=== PATIENT | female | born 1935 | race Caucasian/White ===

== ENCOUNTER → 2016-06-08 | Outpatient (CLI) | payer BC ==
[~2016-06-08] MED LIST: ALPR-411 PO; AMLO10TA4 PO; AMX500 PO; ASPI81TA28 PO; ATOR-26 PO; CHOL100010 PO; CMD2 PO; DOXY50CA26 PO; HYDR25CA PO; HYDR25TA4 PO; IBUP-1050 PO; LEVE750T PO; LISI-461 PO; LPR25 PO; LPT/40 PO; LSN20 PO; METO25TA3 PO; XNX25 PO
== END | disposition home or self-care (01) ==
LOC: C.RDSM 13:59
PROVIDERS: ATTEND Physical Medicine & Rehabilitation Sports Medicine
DX: M17.0 Bilateral primary osteoarthritis of knee (principal)

== ENCOUNTER → 2016-06-18 | Outpatient (CLI) | payer BC | END | disposition home or self-care (01) | LOC: C.LAB1850 16:31 | PROVIDERS: ATTEND Psychiatry & Neurology Neurology | DX: G40.909 Epilepsy, unspecified, not intractable, without status epilepticus (principal) ==

== ENCOUNTER → 2016-11-07 | Outpatient (CLI) | payer BC ==
[2016-11-07 12:45] LABS: CHOLESTEROL/HDL RATIO 2.7
== END | disposition home or self-care (01) ==
LOC: C.LAB 11:28
PROVIDERS: ATTEND Family Medicine
DX: E78.5 Hyperlipidemia, unspecified (principal)

== ENCOUNTER 2016-12-03 10:21 | Day surgery (SDC) | payer BC ==
[~2016-12-03] VITALS: Ht 162.6 cm; Wt 75.0 kg
[~2016-12-03 10:21] MED LIST changes: -ALPR-411 PO; -ASPI81TA28 PO; -ATOR-26 PO; -CHOL100010 PO; -DOXY50CA26 PO; -HYDR25CA PO; -HYDR25TA4 PO; -IBUP-1050 PO; -LEVE750T PO; -LSN20 PO; -METO25TA3 PO
[2016-12-03 10:58] VITALS: BP 159/72; PULSE 66; TEMP 36.6; O2SAT 97; Ht 162.6 cm; Wt 75.0 kg
--- NOTE | 2016-12-03 11:19 | History & Physical Bridge Note ---
H&P Re-Evaluation Bridge Note: I have examined the patient, reviewed the History & Physical and in the interval since the performance of the History & Physical I have noted the following changes of clinical significance: No further syncope.
[2016-12-03] MEDS ORDERED: LSN20 PO (11:27)
[2016-12-03] MEDS ORDERED: ASPI81TA28 PO (11:30)
[2016-12-03] MEDS ORDERED: ATOR-26 PO (11:32)
[2016-12-03] MEDS ORDERED: METO25TA3 PO (11:32)
[2016-12-03] MEDS ORDERED: HYDR25TA4 PO (11:35)
[2016-12-03] MEDS ORDERED: LEVE750T PO (11:37)
[2016-12-03] MEDS ORDERED: ALPR-411 PO (11:40)
[2016-12-03] MEDS ORDERED: CHOL100010 PO (11:42)
[2016-12-03] MEDS ORDERED: LIDOCAINE HCL 1% 20 ML VIAL ONE (11:42)
[2016-12-03] MEDS ORDERED: DOXY50CA26 PO (11:44)
[2016-12-03] MEDS ORDERED: HYDR25CA PO (11:45)
[2016-12-03] MEDS ORDERED: IBUP-1050 PO (11:46)
--- NOTE | 2016-12-03 11:54 | Procedure Note ---
Procedure Note Date of Service Dec 03, 2016. Procedure Note Procedure Performed: Implant of patient activated loop recorder Staff baling machine tender: Dom Gupta MD Indication: Patient is an 81-year-old woman with a history of syncope versus seizures. Based on the unknown etiology of her events and the infrequent nature of these episodes she was advised to consider implantation of a loop recorder. Procedure in detail: The patient was informed of the risks benefits and alternatives to the intended procedure. She understood such which proceed. She was taken to the electrophysiology suite where the left upper chest was prepped and draped in the usual sterile fashion. An area left lateral to the sternum in the 4th intercostal space was subsequently anesthetized using subcutaneous administration of lidocaine solution. A small incision was made at this site and the loop recorder was implanted using a proprietary implantation kit. The resultant small incision was subsequent closed with a single 4 0 Vicryl suture followed by Steri-Strips and a sterile dressing. The device was tested noninvasively prior conclusion the procedure. The patient tolerated procedure well. There were no immediate complications. Equipment used: Loop recorder: [employer]. Model number [id number]. Serial number [id number] Impression: Successful implantation of patient activated loop recorder
--- NOTE | 2016-12-03 11:58 | Discharge Instructions ---
Discharge Instructions Date of Service Dec 03, 2016. Admission Reason for Admission: Syncope Discharge Discharge Diagnosis / Problem: syncope Discharge Goals Goal(s): Diagnostic testing Activity Recommendations Activity Limitations: as noted below Lifting Limitations: none Exercise/Sports Limitations: none May Resume Sexual Activity: when tolerated Shower/Bathe: keep incision dry Driving or Machine Use: no limitations Keep wound dry and steri-strip intact until f/u for wound check . Current Hospital Diet Patient's current hospital diet: Diabetes Type 2 Diet Discharge Diet Recommended Diet: Regular Diet Procedures Procedures Performed: Placement of loop recorder Pending Studies Studies pending at discharge: no Laboratory Results Lipid Panel Test 11/07/16 11:46 Range/Units Triglycerides Level 106 0-150 mg/dl Cholesterol Level 166 0-200 mg/dl HDL Cholesterol 61 mg/dl Cholesterol/HDL Ratio 2.7 LDL Cholesterol, Calculated 84 mg/dl Medical Emergencies . Who to Call and When: Medical Emergencies: If at any time you feel your situation is an emergency, please call 911 immediately. . Non-Emergent Contact Non-Emergency issues call your: Information Security Risk Analyst Call Non-Emergent contact if: you have a fever, your pain is not controlled, your pain is worsening, wound has increased drainage, wound has increased redness, wound has increased pain . . "Provider Documentation" section prepared by Manny Gupta. . VTE Core Measure Inpt VTE Proph given/why not?: Treatment not indicated
[2016-12-03] MEDS ORDERED: ACETAMINOPHEN 325 MG TAB PO PRN (12:00)
[2016-12-03] MEDS ORDERED: OXYCODONE/ACETAMINOPHEN 5-325 TAB PO PRN (12:00)
[2016-12-03 12:05] VITALS: BP 143/71; PULSE 64; TEMP 36.6; O2SAT 98
[2016-12-03 12:30] VITALS: BP 148/85; PULSE 70; TEMP 36.6; O2SAT 98
== END 2016-12-03 12:36 | disposition home or self-care (01) ==
LOC: C.ACU 10:21
PROVIDERS: ATTEND Internal Medicine Clinical Cardiac Electrophysiology
DX: G40.909 Epilepsy, unspecified, not intractable, without status epilepticus (principal); I10 Essential (primary) hypertension; E78.00 Pure hypercholesterolemia, unspecified; E11.9 Type 2 diabetes mellitus without complications; Z86.73 Personal history of transient ischemic attack (TIA), and cerebral infarction without residual deficits

== ENCOUNTER → 2017-01-20 | Outpatient (CLI) | payer BC ==
[~2017-01-20] MED LIST changes: +ALPR-411 PO; -AMLO10TA4 PO; -AMX500 PO; +ASPI81TA28 PO; +ATOR-26 PO; +CHOL100010 PO; -CMD2 PO; +DOXY50CA26 PO; +HYDR25CA PO; +HYDR25TA4 PO; +IBUP-1050 PO; +LEVE750T PO; -LISI-461 PO; -LPR25 PO; -LPT/40 PO; +LSN20 PO; +METO25TA3 PO; -XNX25 PO
== END | disposition home or self-care (01) ==
LOC: C.LAB1850 16:34
PROVIDERS: ATTEND Psychiatry & Neurology Neurology
DX: G40.909 Epilepsy, unspecified, not intractable, without status epilepticus (principal)

== ENCOUNTER → 2017-03-17 | Outpatient (CLI) | payer BC ==
[~2017-03-17] MED LIST changes: +DOXY-258 PO; -DOXY50CA26 PO; +LISI-726 PO; -LSN20 PO
== END | disposition home or self-care (01) ==
LOC: C.LAB1850 15:48
PROVIDERS: ATTEND Psychiatry & Neurology Neurology
DX: G40.909 Epilepsy, unspecified, not intractable, without status epilepticus (principal)

== ENCOUNTER → 2017-04-08 | Outpatient (CLI) | payer BC ==
[~2017-04-08] MED LIST changes: -DOXY-258 PO; +DOXY50CA26 PO; -LISI-726 PO; +LSN20 PO
[2017-04-08 17:02] LABS: BLOOD UREA NITROGEN 27 mg/dl (7-18); CREATININE 1.14 mg/dl (0.60-1.20)
== END | disposition home or self-care (01) ==
LOC: C.LAB1850 15:15
PROVIDERS: ATTEND Physician Assistant
DX: E11.9 Type 2 diabetes mellitus without complications (principal)

== ENCOUNTER → 2017-04-28 | Outpatient (CLI) | payer BC ==
--- NOTE | 2017-04-28 11:51 | EEG Procedure Note ---
EEG Procedure Note Date of Service Apr 28, 2017. Start / End Times Start Time: 8:00am End Time: 8:21am Referring Physician STEFAN Hassan History This is a 81-year-old female with a reported history of epilepsy and seizures. EEG for further evaluation of seizure etiology. Home Medication List Scheduled Alprazolam (Xanax), 0.25 MG PO TID Aspirin (Aspirin Ec), 81 MG PO DAILY Atorvastatin (Lipitor), 1 TAB PO DAILY Cholecalciferol (Vitamin D), 2 TAB PO DAILY Doxycycline (Monohydrate) (Doxycycline), 1 TAB PO BID Hydrochlorothiazide (Hctz), 1 TAB PO DAILY Levetiracetam (Keppra), 2 TABS PO BID Lisinopril (Lisinopril), 1 TAB PO QAM Metoprolol Succ (Toprol Xl) (Toprol-Xl), 25 MG PO DAILY Scheduled PRN Hydroxyzine Pamoate (Vistaril), 1 CAP PO DAILY PRN for Itching Miscellaneous Medications Ibuprofen (Advil), 200 MG PO Description This is a 21 electrode EEG with a single channel dedicated to limited EKG. The electrodes were placed in accordance with the International 10-20 system. At the start of the recording the patient was in an awake state. Background was well organized and composed of symmetric mixed alpha and beta frequencies. There was a symmetric well-formed moderate amplitude 9-10 Hz posterior dominant rhythm that was reactive to eye opening and closure. Hyperventilation was not done. Intermittent photic stimulation at various frequencies produced no abnormalities. Sleep was indicated by symmetric sleep spindles. Interpretation This is a normal awake and asleep routine EEG. There was no electrographic seizures or epileptiform discharges. Clinical Correlation A normal EEG does not rule out epilepsy if there is a strong clinical suspicion.
== END | disposition home or self-care (01) ==
LOC: C.NEUR 07:55
PROVIDERS: ATTEND Physician Assistant
DX: G40.909 Epilepsy, unspecified, not intractable, without status epilepticus (principal)

== ENCOUNTER → 2017-04-28 | Outpatient (CLI) | payer BC ==
[~2017-04-28] MED LIST changes: +GADAVIST IV PRN
--- NOTE | 2017-04-28 10:28 | DIAGNOSTIC IMAGING REPORT ---
Brain MRI WITH AND WITHOUT CONTRAST HISTORY: SEIZURE DISORDER TECHNIQUE: Multiplanar multisequence MRI of the brain was performed both before and after the intravenous administration of contrast. COMPARISON STUDY: Brain MRI 04/23/2014. FINDINGS: There is no hematoma, midline shift, or acute infarct. The paranasal sinuses are clear. The mastoid air cells are clear. The ventricles and sulci demonstrate mild age-related involutional changes. Scattered foci of T2 hyperintensity seen within the periventricular and subcortical white matter are nonspecific but suggestive of mild to moderate microvascular ischemic changes. The major vascular flow voids at the skull base are well-maintained. Stable 9 mm extra-axial enhancing lesion within the left high convexity. This likely represents a meningioma. 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 IMPRESSION: 1. No significant change compared to the prior study. No acute intracranial abnormality. 2. Stable presumed microvascular ischemic changes. 3. Stable 9 mm enhancing extra-axial nodule within the left high convexity. This likely represents a meningioma. Electronically signed by: Sarabjit Duque M.D. 04/28/2017 10:27 AM Dictated Date/Time: 04/28/2017 10:19 AM
== END | disposition home or self-care (01) ==
LOC: C.MRIBC 08:42
PROVIDERS: ATTEND Physician Assistant
DX: G40.909 Epilepsy, unspecified, not intractable, without status epilepticus (principal); R22.0 Localized swelling, mass and lump, head

== ENCOUNTER → 2017-05-20 | Outpatient (CLI) | payer BC ==
[~2017-05-20] MED LIST changes: -GADAVIST IV PRN
== END | disposition home or self-care (01) ==
LOC: C.LAB1850 16:30
PROVIDERS: ATTEND Psychiatry & Neurology Neurology
DX: G40.909 Epilepsy, unspecified, not intractable, without status epilepticus (principal)

== ENCOUNTER → 2017-06-07 | Outpatient (CLI) | payer BC | END | disposition home or self-care (01) | LOC: C.RDSM 07:50 | PROVIDERS: ATTEND Physical Medicine & Rehabilitation Sports Medicine | DX: M25.561 Pain in right knee (principal); M25.562 Pain in left knee ==

== ENCOUNTER 2023-07-28 14:08 | Inpatient (IN) ==
--- NOTE | 2023-07-28 14:20 | Emergency Department Note ---
Impression & Plan Syncope, Acute hyponatremia, HTN (hypertension), Stroke ED Provider Note NAME: SALONI SORTO AGE: 88 SEX: F : 1935 ARRIVES VIA: Ambulance INFORMANT: Patient ED PROVIDER(S): Stu Gilbert DO CHIEF COMPLAINT: syncope HPI: Patient is an 88-year-old female who presents to the ER for a history of hyperlipidemia, hypertension and seizure disorder for 2 episodes of where she passed out. There was no seizure activity. Patient was not witnessed on the first event. It was witnessed on the second as there was a nurse present. Denies any headache or change in vision. No chest pain or shortness of breath. No nausea, vomiting, or diarrhea. No dysuria, urgency, or frequency. No other exacerbating or remitting factors. ADDITIONAL HISTORY OBTAINED: Per HPI Chronic Medical/Social Conditions Affecting Care: Per HPI PAST MEDICAL HISTORY:See Below PAST SURGICAL HISTORY:See Below FAMILY HISTORY:See Below SOCIAL HISTORY:See Below HOME MEDICATIONS:See Below ALLERGIES:See Below VITALS:See Below PHYSICAL EXAMINATION: GENERAL: Sitting up in bed, alert, well appearing, well nourished, no distress, non-toxic EYE EXAM: normal conjunctiva. PERRL and EOM's grossly intact. HEAD: NC/AT OROPHARYNX: no exudate, no erythema, buccal mucosa, and tongue normal and mucous membranes are moist. small abrasion mid upper lip NECK: supple, no nuchal rigidity, no adenopathy, non-tender LUNGS: Clear to auscultation. Normal chest wall mechanics HEART: no murmurs, S1 normal and S2 normal ABDOMEN: abdomen soft, non-tender, normo-active bowel sounds, no masses, no rebound or guarding. BACK: Back is symmetrical on inspection and there is no deformity, no midline tenderness, no CVA tenderness. SKIN: no rashes and no bruising UPPER EXTREMITIES: upper extremities are grossly normal. LOWER EXTREMITIES: No pitting edema. NEURO EXAM: Normal sensorium, cranial nerves II-XII grossly intact, normal speech, no gross weakness of arms, no gross weakness of legs. MEDICAL DECISION MAKING: Patient is an 88-year-old female who presents ER for 2 syncopal episodes. She is found to be significant hypertensive with systolics in the 220s. IV was established blood work was obtained. Labs show no significant leukocytosis or anemia. BMP with mild hyponatremia 134. LFTs bilirubin was unremarkable. Lipase was normal. Troponin was negative. Patient was completely neurologically intact. She was given IV hydralazine for systolics in the 220s and then trended down to 180s. CT suggested a subacute infarct. With a drop in blood pressure to 180 elected to not treat any further and discussed with the hospitalist for further evaluation management treatment. Consults/Care Managements Discussions: Per MDM Triage Nursing notes reviewed. Limited review of prior medical records performed Vital Signs: reviewed and remarkable for no significant abnormalities Differential diagnosis: Differential diagnosis includes etiologies such as vasovagal event, infection, hypoglycemia, electrolyte abnormalities, cardiac sources, intracerebral event, toxicologic, neurologic, as well as others were entertained. ER treatment provided: See below Diagnostics interpreted by me include EKG and cardiac monitoring as listed below: -Cardiac Monitoring: An order was placed for continuous cardiac monitoring. The monitor shows a rate of 80 with sinus rhythm. -ECG: Sinus rhythm rate 65 Normal axis No PVCs QTc 405 -Laboratory studies:Interpreted by me as stated above in MDM and shown below. Imaging studies: Xrays: As interpreted by me: Portable AP upright 1 view chest shows no focal infiltrate CTs show: CT of the head shows a subacute infarct Procedures:none Critical Care: None Past Med/Surg History Problem List (Updated 07/28/23 @ 18:46 by Stu Gilbert DO) Stroke (Acute) HTN (hypertension) (Acute) Acute hyponatremia (Acute) Syncope (Acute) Right knee pain Syncope Poor short term memory Blurry vision, left eye Chronic kidney disease, stage 3a Insomnia Chronic renal insufficiency (Chronic) Hyperlipidemia (Chronic) Meningioma (Acute) Generalized anxiety disorder (Acute) Dyslipidemia (Acute) Hypertension (Chronic) Seizure disorder (Acute) Syncope and collapse (Acute) Essential tremor (Acute) Type 2 diabetes mellitus (Chronic) Medical History Chronic renal insufficiency Weight disorder Ventricular premature beats Transient cerebral ischemia Syncope Seborrheic dermatitis of scalp Sacral insufficiency fracture Rosacea Right facial numbness Right arm numbness Osteoporosis Nummular eczema Mental confusion IFG (impaired fasting glucose) Lichen simplex chronicus Hx of uterine prolapse Constipation Chronic paronychia of toe Borderline osteopenia Borderline diabetes mellitus Arthritis Ankle pain Angioedema Acute lumbar radiculopathy Acquired ptosis of eyelid Anxiety Seizure LAST--06/2017 PER PT SHE "JUST PASSES OUT FOR A MINUTE OR TWO" Hypertension Hyperlipidemia Surgical History History of bladder surgery CYSTOCELE REPAIR History of bilateral tubal ligation History of ankle surgery RIGHT ANKLE FX REPAIR--PINS AND RODS IN PLACE History of total left knee replacement (TKR) H/O abdominal hysterectomy History of colonoscopy History of tooth extraction WISDOM TEETH History of tonsillectomy and adenoidectomy H/O bilateral cataract extraction Status post placement of implantable loop recorder Family History Family/Other Colorectal cancer Father COPD (chronic obstructive pulmonary disease) Emphysema, unspecified Mother Hypertension Syncope Sister Cardiovascular disease Social History Smoking Status: Never smoker Second Hand Exposure: No; Do You Dip or Chew Tobacco: No; Hx Alcohol Use: No Hx Substance Use: No Preferred Language: Congolese Communication Ability: Effective Bar Catcher Required: No Beliefs That Will Affect Care: Mandaeism Mandaeism Beliefs: GNOSTICISM AND CONGREGATIONAL Current Living Situation: Spouse Feels Safe at Home: Yes Assistive Devices: Denture - Upper and Glasses Allergies Allergies Allergy/AdvReac Type Severity Reaction Status Date / Time alendronate sodium Allergy Severe tongue Verified 07/28/23 16:49 swelling lisinopril Allergy Unknown Verified 07/28/23 16:49 Alendrnate Allergy Unknown unknown Uncoded 07/28/23 16:49 Home Meds Home Medications Medication Instructions Recorded Confirmed lancets 33 gauge [facility] 05/27/20 07/28/23 Lancets) terazosin 2 mg capsule 2 mg PO HS 05/27/20 07/28/23 cholecalciferol (vitamin D3) 25 50 mcg PO DAILY 06/11/20 07/28/23 mcg (1,000 unit) capsule blood sugar diagnostic (Celnyx 12/26/20 07/28/23 Verio test strips) potassium chloride 10 mEq 10 meq PO BID 06/03/22 07/28/23 tablet,extended release amoxicillin 500 mg capsule 2,000 mg PO ONCE PRN 1 hr prior to 05/20/23 07/28/23 dental appt carvedilol 6.25 mg tablet 6.25 mg PO BID 05/20/23 07/28/23 escitalopram oxalate 10 mg tablet 5 mg PO DAILY 05/20/23 07/28/23 hydrochlorothiazide 25 mg tablet 25 mg PO DAILY 07/12/23 07/28/23 melatonin 5 mg disintegrating 5 mg PO HS PRN Sleep 07/28/23 07/28/23 tablet Previous Rx's Medication Instructions Recorded atorvastatin 40 mg tablet 40 mg PO DAILY #30 tabs 06/26/21 alprazolam 0.25 mg tablet (Xanax) 0.25 mg PO TID PRN anxiety 90 days 12/11/22 #270 tabs lamotrigine 50 mg tablet,extended 50 mg PO BID #180 tabs 01/07/23 release 24 hr Results & Data (ED) Vital Signs Vital Signs - 24 hr 07/28/23 14:20 07/28/23 14:21 07/28/23 14:21 Temperature 36.8 C Temperature Source Oral Pulse Rate 66 Pulse Rate [Apical] Pulse Rate from SpO2 Sensor Respiratory Rate 14 Blood Pressure 210/94 H Blood Pressure [Left Arm] Blood Pressure Mean 132 Blood Pressure Mean [Left Arm] Pulse Oximetry 98 97 97 Oxygen Delivery Method Room Air Room Air Room Air Sepsis Recent Fever Within 48 Hours No Sepsis New/Unexplained Change in Mental Status N/A Sepsis Action Taken by Nursing No Action Required 07/28/23 14:46 07/28/23 14:52 07/28/23 15:00 Temperature Temperature Source Pulse Rate 69 Pulse Rate [Apical] 70 66 Pulse Rate from SpO2 Sensor 68 Respiratory Rate 19 20 16 Blood Pressure Blood Pressure [Left Arm] 208/106 H 223/89 H Blood Pressure Mean Blood Pressure Mean [Left Arm] 140 133 Pulse Oximetry 95 98 97 Oxygen Delivery Method Room Air Room Air Sepsis Recent Fever Within 48 Hours Sepsis New/Unexplained Change in Mental Status Sepsis Action Taken by Nursing 07/28/23 15:00 07/28/23 15:00 07/28/23 15:04 Temperature Temperature Source Pulse Rate 65 67 Pulse Rate [Apical] Pulse Rate from SpO2 Sensor 65 67 Respiratory Rate 19 19 Blood Pressure 223/89 H Blood Pressure [Left Arm] Blood Pressure Mean 98 Blood Pressure Mean [Left Arm] Pulse Oximetry 97 97 Oxygen Delivery Method Sepsis Recent Fever Within 48 Hours Sepsis New/Unexplained Change in Mental Status Sepsis Action Taken by Nursing 07/28/23 15:04 07/28/23 15:05 07/28/23 15:05 Temperature Temperature Source Pulse Rate 68 Pulse Rate [Apical] Pulse Rate from SpO2 Sensor 65 Respiratory Rate 20 Blood Pressure 238/94 H 217/107 H Blood Pressure [Left Arm] Blood Pressure Mean 115 162 Blood Pressure Mean [Left Arm] Pulse Oximetry 98 Oxygen Delivery Method Sepsis Recent Fever Within 48 Hours Sepsis New/Unexplained Change in Mental Status Sepsis Action Taken by Nursing 07/28/23 15:10 07/28/23 15:10 07/28/23 15:20 Temperature Temperature Source Pulse Rate 65 Pulse Rate [Apical] Pulse Rate from SpO2 Sensor 66 Respiratory Rate 20 Blood Pressure 207/89 H 177/105 H Blood Pressure [Left Arm] Blood Pressure Mean 175 130 Blood Pressure Mean [Left Arm] Pulse Oximetry 97 Oxygen Delivery Method Sepsis Recent Fever Within 48 Hours Sepsis New/Unexplained Change in Mental Status Sepsis Action Taken by Nursing 07/28/23 15:20 07/28/23 15:30 07/28/23 15:30 Temperature Temperature Source Pulse Rate 67 63 Pulse Rate [Apical] Pulse Rate from SpO2 Sensor 68 63 Respiratory Rate 17 17 Blood Pressure 224/137 H Blood Pressure [Left Arm] Blood Pressure Mean 160 Blood Pressure Mean [Left Arm] Pulse Oximetry 96 95 Oxygen Delivery Method Sepsis Recent Fever Within 48 Hours Sepsis New/Unexplained Change in Mental Status Sepsis Action Taken by Nursing 07/28/23 15:40 07/28/23 15:40 07/28/23 15:43 Temperature Temperature Source Pulse Rate 73 72 Pulse Rate [Apical] Pulse Rate from SpO2 Sensor 73 69 Respiratory Rate 19 23 Blood Pressure 212/87 H Blood Pressure [Left Arm] Blood Pressure Mean 97 Blood Pressure Mean [Left Arm] Pulse Oximetry 98 97 Oxygen Delivery Method Sepsis Recent Fever Within 48 Hours Sepsis New/Unexplained Change in Mental Status Sepsis Action Taken by Nursing 07/28/23 15:43 07/28/23 15:50 07/28/23 15:51 Temperature Temperature Source Pulse Rate 74 Pulse Rate [Apical] Pulse Rate from SpO2 Sensor 74 Respiratory Rate 18 Blood Pressure 181/84 H 196/81 H Blood Pressure [Left Arm] Blood Pressure Mean 139 111 Blood Pressure Mean [Left Arm] Pulse Oximetry 98 Oxygen Delivery Method Sepsis Recent Fever Within 48 Hours Sepsis New/Unexplained Change in Mental Status Sepsis Action Taken by Nursing 07/28/23 15:51 07/28/23 16:00 07/28/23 16:00 Temperature Temperature Source Pulse Rate 74 74 Pulse Rate [Apical] Pulse Rate from SpO2 Sensor 74 74 Respiratory Rate 22 17 Blood Pressure 189/80 H Blood Pressure [Left Arm] Blood Pressure Mean 138 Blood Pressure Mean [Left Arm] Pulse Oximetry 97 98 Oxygen Delivery Method Sepsis Recent Fever Within 48 Hours Sepsis New/Unexplained Change in Mental Status Sepsis Action Taken by Nursing 07/28/23 16:10 07/28/23 16:10 07/28/23 16:20 Temperature Temperature Source Pulse Rate 76 73 Pulse Rate [Apical] Pulse Rate from SpO2 Sensor 75 73 Respiratory Rate 17 16 Blood Pressure 181/81 H Blood Pressure [Left Arm] Blood Pressure Mean 107 Blood Pressure Mean [Left Arm] Pulse Oximetry 98 98 Oxygen Delivery Method Sepsis Recent Fever Within 48 Hours Sepsis New/Unexplained Change in Mental Status Sepsis Action Taken by Nursing 07/28/23 16:20 07/28/23 16:38 07/28/23 16:40 Temperature Temperature Source Pulse Rate 83 79 Pulse Rate [Apical] Pulse Rate from SpO2 Sensor 81 78 Respiratory Rate 22 17 Blood Pressure 195/85 H Blood Pressure [Left Arm] Blood Pressure Mean 146 Blood Pressure Mean [Left Arm] Pulse Oximetry 99 98 Oxygen Delivery Method Sepsis Recent Fever Within 48 Hours Sepsis New/Unexplained Change in Mental Status Sepsis Action Taken by Nursing 07/28/23 16:40 07/28/23 16:45 07/28/23 16:50 Temperature Temperature Source Pulse Rate 78 76 Pulse Rate [Apical] Pulse Rate from SpO2 Sensor 76 Respiratory Rate 15 Blood Pressure 167/96 H Blood Pressure [Left Arm] Blood Pressure Mean 102 Blood Pressure Mean [Left Arm] Pulse Oximetry 98 Oxygen Delivery Method Sepsis Recent Fever Within 48 Hours Sepsis New/Unexplained Change in Mental Status Sepsis Action Taken by Nursing 07/28/23 16:50 07/28/23 17:00 07/28/23 17:00 Temperature Temperature Source Pulse Rate 75 Pulse Rate [Apical] Pulse Rate from SpO2 Sensor 74 Respiratory Rate 15 Blood Pressure 198/91 H 189/84 H Blood Pressure [Left Arm] Blood Pressure Mean 136 148 Blood Pressure Mean [Left Arm] Pulse Oximetry 97 Oxygen Delivery Method Sepsis Recent Fever Within 48 Hours Sepsis New/Unexplained Change in Mental Status Sepsis Action Taken by Nursing 07/28/23 17:10 07/28/23 17:10 07/28/23 17:20 Temperature Temperature Source Pulse Rate 79 Pulse Rate [Apical] Pulse Rate from SpO2 Sensor 78 Respiratory Rate 19 Blood Pressure 198/90 H 184/86 H Blood Pressure [Left Arm] Blood Pressure Mean 133 111 Blood Pressure Mean [Left Arm] Pulse Oximetry 97 Oxygen Delivery Method Sepsis Recent Fever Within 48 Hours Sepsis New/Unexplained Change in Mental Status Sepsis Action Taken by Nursing 07/28/23 17:20 07/28/23 17:30 07/28/23 18:21 Temperature Temperature Source Pulse Rate 75 83 Pulse Rate [Apical] Pulse Rate from SpO2 Sensor 75 81 Respiratory Rate 19 20 Blood Pressure Blood Pressure [Left Arm] Blood Pressure Mean Blood Pressure Mean [Left Arm] Pulse Oximetry 98 98 97 Oxygen Delivery Method Room Air Sepsis Recent Fever Within 48 Hours Sepsis New/Unexplained Change in Mental Status Sepsis Action Taken by Nursing Laboratory Data 07/28/23 14:20 07/28/23 14:20 Lab Results 07/28/23 Range/Units 14:20 WBC 7.98 (4.8-10.8) K/ul RBC 4.11 L (4.20-5.40) M/uL Hgb 12.2 (12.0-16.0) g/dl Hct 36.6 L (37.0-47.0) % MCV 89.1 (80.0-100.0) fL MCH 29.7 (25.0-34.0) pg MCHC 33.3 (32.0-36.0) g/dL RDW Std Deviation 43.7 (36.4-46.3) fL RDW Coeff of Renee 13.4 (11.5-14.5) % Plt Count 272 (130-400) K/uL MPV 10.3 (9.4-12.4) fL Immature Gran % (Auto) 0.4 % Neut % (Auto) 65.7 % Lymph % (Auto) 23.2 % Barbour % (Auto) 7.6 % Eos % (Auto) 2.8 % Baso % (Auto) 0.3 % Neut # (Auto) 5.25 (1.40-6.50) K/uL Lymph # (Auto) 1.85 (1.20-3.40) K/uL Barbour # (Auto) 0.61 H (0.11-0.59) K/uL Eos # (Auto) 0.22 (0.00-0.50) K/uL Baso # (Auto) 0.02 (0.00-0.20) K/uL Immature Gran # (Auto) 0.03 (0.01-0.20) K/uL Sodium 134 L (136-145) mmol/L Potassium 4.3 (3.5-5.1) mmol/L Chloride 100 (98-107) mmol/L Carbon Dioxide 28 (21-32) mmol/L Anion Gap 6 (3-11) BUN 19 (6-23) mg/dl Creatinine 1.07 (0.6-1.2) mg/dl Est Cr Clr Drug Dosing Not Reportable Est GFR ( Amer) 53.7 ml/min Est GFR (Non-Af Amer) 46.3 ml/min BUN/Creatinine Ratio 17.8 (10-20) Glucose 108 H (70-99(Fasting)) mg/dl Calcium 9.8 (8.6-10.3) mg/dl Total Bilirubin 0.8 (0.2-1.0) mg/dl AST 29 (13-39) U/L ALT 16 (7-52) U/L Alkaline Phosphatase 83 (34-104) U/L Troponin I High Sens 6.6 (0-14) pg/ml Total Protein 7.0 (6.0-8.3) gm/dl Albumin 3.9 (3.4-5.0) gm/dl Globulin 3.1 (2.5-4.0) gm/dl Albumin/Globulin Ratio 1.3 (0.9-2) Lipase 43 (11-82) U/L Administered Medications Lorazepam 0.5 mg/ Syringe 0.5 mls @ 2 mls/min IV PRN PRN PRN Reason: prior to MRI Stop: 08/27/23 18:02 Last Admin: 07/28/23 18:18 Dose: 2 mls/min Documented By: ACC Discontinued Medications Aspirin (Aspirin Chew 324 Mg) 324 mg PO NOW STA Stop: 07/28/23 17:58 Last Admin: 07/28/23 18:04 Dose: 324 mg Documented By: ACC Hydralazine HCl (Hydralazine Hcl 20 Mg/Ml Vial) 10 mg IV NOW STA Stop: 07/28/23 15:17 Last Admin: 07/28/23 15:33 Dose: 10 mg Documented By: ACC Ioversol (Optiray 320 125ml) 119 ml IV ONCE ONE Stop: 07/28/23 18:26 Last Admin: 07/28/23 18:25 Dose: 119 ml Documented By: JONATHON Imaging Data Radiologist's Impression: Chest X-Ray 07/28/23 14:16 XR chest 1V portable HISTORY: 88 years-old Female Chest pain, nonspecific COMPARISON: 05/20/2023 TECHNIQUE: AP view the chest FINDINGS: Cardiac silhouette is enlarged. Electronic device again noted projected over the left heart border. No pneumothorax, pleural effusion or airspace consolidation. The bones appear intact. Hiatal hernia suspected. IMPRESSION: No acute process. ACT 112: Negative or not required by law. The above report was generated using voice recognition software. It may contain grammatical, syntax or spelling errors. Electronically signed by: Dimas Calles M.D. 07/28/2023 4:[address] 07/28/23 14:16 CT SCAN OF THE BRAIN WITHOUT IV CONTRAST CLINICAL HISTORY: Fall. Syncope. COMPARISON STUDY: CT of the brain dated 05/20/2023. TECHNIQUE: Unenhanced axial CT scan of the brain is performed from the vertex to the skull base. A dose lowering technique was utilized adhering to the principles of ALARA. CT DOSE: 547.75 mGy.cm FINDINGS: Brain parenchyma: A focus of right cerebellar encephalomalacia is new from 05/20/2023 likely representing late subacute/evolving infarct. There is age- related involutional change noting moderate subcortical and periventricular microangiopathic disease. There is no hemorrhage, mass effect, or evidence of acute territorial ischemia by CT criteria. A 12 mm high left parafalcine calcified meningioma is unchanged. Becker-white matter differentiation is preserved. No extra-axial fluid collection is seen. Ventricles, sulci, cisterns: Prominent secondary to involutional change. Cavum septum pellucidum is incidentally noted. Intracranial vasculature: There is atherosclerotic calcification of the cavernous carotid and vertebral arteries. Calvarium: The skeletal structures are osteopenic. No depressed calvarial fracture is identified. Sinuses and mastoids: The visualized paranasal sinuses are clear. The mastoid air cells are well pneumatized. Orbits: The bony orbits are grossly intact. There are bilateral ocular lens implants. IMPRESSION: 1. There is no hemorrhage, mass effect, or evidence of acute territorial ischemia by CT criteria. 2. A focus of right cerebellar encephalomalacia is new from 05/20/2023. This likely represents a late subacute/evolving infarct. Correlate clinically. 3. Additional findings as above. ACT 112: Negative or not required by law. Electronically signed by: Pardeep Cosby M.D. 07/28/2023 2:59 PM Discharge Plan Visit Data Chief Complaint: Syncope ED Provider: Stu Gilbert Discharge Problem: Syncope, Acute hyponatremia, HTN (hypertension), Stroke Patient Disposition: Admitted As Inpatient Discharge Instructions Interventions: ED Discharge Assessment Last Done: 07/28/23 18:21 Forms Stand Alone Forms: [employer] Prescriptions Prescriptions: No Action cholecalciferol (vitamin D3) 25 mcg (1,000 unit) capsule 50 mcg PO DAILY alprazolam [Xanax] 0.25 mg tablet 0.25 mg PO TID PRN (Reason: anxiety) 90 Days Qty: 270 0RF lamotrigine 50 mg tablet extended release 24hr 50 mg PO BID Qty: 180 3RF potassium chloride 10 mEq tablet extended release 10 meq PO BID (DME) OneTouch Verio test strips Strip See Rx Instructions .Route Rx Instructions: Test blood sugar twice daily atorvastatin 40 mg tablet 40 mg PO DAILY Qty: 30 2RF hydrochlorothiazide 25 mg tablet 25 mg PO DAILY terazosin 2 mg capsule 2 mg PO HS (DME) lancets [OneTouch Delica Lancets] 33 gauge misc See Rx Instructions .ROUTE .MEDSUPPLY Qty: 100 Rx Instructions: testing 2 X daily escitalopram oxalate 10 mg tablet 5 mg PO DAILY carvedilol 6.25 mg tablet 6.25 mg PO BID amoxicillin 500 mg capsule 2,000 mg PO ONCE PRN (Reason: 1 hr prior to dental appt) melatonin 5 mg tablet,disintegrating 5 mg PO HS PRN (Reason: Sleep) Referrals Referrals: Suzanne Holloway MD [Outside Practitioners] - Discharge Problem: Syncope Qualifiers: Syncope type: unspecified Qualified Code(s): R55 - Syncope and collapse HTN (hypertension) Qualifiers: Hypertension type: unspecified Qualified Code(s): I10 - Essential (primary) hypertension Stroke Qualifiers: CVA mechanism: unspecified Qualified Code(s): I63.9 - Cerebral infarction, unspecified
--- NOTE | 2023-07-28 15:00 | CT Scan Report ---
CT SCAN OF THE BRAIN WITHOUT IV CONTRAST CLINICAL HISTORY: Fall. Syncope. COMPARISON STUDY: CT of the brain dated 05/20/2023. TECHNIQUE: Unenhanced axial CT scan of the brain is performed from the vertex to the skull base. A do se lowering technique was utilized adhering to the principles of ALARA. CT DOSE: 547.75 mGy.cm FINDINGS: Brain parenchyma: A focus of right cerebellar encephalomalacia is new from 05/20/2023 likely representi ng late subacute/evolving infarct. There is age-related involutional change noting moderate subcortic al and periventricular microangiopathic disease. There is no hemorrhage, mass effect, or evidence of acute territorial ischemia by CT criteria. A 12 mm high left parafalcine calcified meningioma is unch anged. Becker-white matter differentiation is preserved. No extra-axial fluid collection is seen. Ventricles, sulci, cisterns: Prominent secondary to involutional change. Cavum septum pellucidum is i ncidentally noted. Intracranial vasculature: There is atherosclerotic calcification of the cavernous carotid and vertebr al arteries. Calvarium: The skeletal structures are osteopenic. No depressed calvarial fracture is identified. Sinuses and mastoids: The visualized paranasal sinuses are clear. The mastoid air cells are well pneu matized. Orbits: The bony orbits are grossly intact. There are bilateral ocular lens implants. IMPRESSION: 1. There is no hemorrhage, mass effect, or evidence of acute territorial ischemia by CT criteria. 2. A focus of right cerebellar encephalomalacia is new from 05/20/2023. This likely represents a late s ubacute/evolving infarct. Correlate clinically. 3. Additional findings as above. ACT 112: Negative or not required by law. Electronically signed by: Pardeep oCsby M.D. 07/28/2023 2:59 PM
[2023-07-28 15:03] LABS: Alanine Aminotransferase 16 U/L (7-52); Albumin Globulin Ratio 1.3 (0.9-2); Albumin Level 3.9 gm/dl (3.4-5.0); Alkaline Phosphatase 83 U/L (34-104); Anion Gap 6 (3-11); Aspartate Aminotransferase 29 U/L (13-39); BUN Creatinine Ratio 17.8 (10-20); Bilirubin,Total 0.8 mg/dl (0.2-1.0); Blood Urea Nitrogen 19 mg/dl (6-23); Calcium 9.8 mg/dl (8.6-10.3); Carbon Dioxide 28 mmol/L (21-32); Chloride 100 mmol/L (98-107); Est GFR (African American) 53.7 ml/min; Est GFR (Non-African American) 46.3 ml/min; Globulin 3.1 gm/dl (2.5-4.0); Glucose 108 mg/dl (70-99(Fasting)); Lipase 43 U/L (11-82); Potassium 4.3 mmol/L (3.5-5.1); Sodium 134 mmol/L (136-145)
[2023-07-28 15:09] LABS: Troponin I High Sensitivity 6.6 pg/ml (0-14)
[2023-07-28 15:32] LABS: Hematocrit (blood only) 36.6 % (37.0-47.0); Hemoglobin 12.2 g/dl (12.0-16.0); Mean Corpuscular Hemoglobin 29.7 pg (25.0-34.0); Mean Corpuscular Hgb Conc 33.3 g/dL (32.0-36.0); Mean Corpuscular Volume 89.1 fL (80.0-100.0); Mean Platelet Volume 10.3 fL (9.4-12.4); Platelet Count 272 K/uL (130-400); RDW Coefficient of Variation 13.4 % (11.5-14.5); RDW Standard Deviation 43.7 fL (36.4-46.3); Red Blood Count 4.11 M/uL (4.20-5.40); White Blood Count 7.98 K/ul (4.8-10.8)
[2023-07-28 15:33] LABS: Basophils # (auto) 0.02 K/uL (0.00-0.20); Basophils % (auto) 0.3 %; Eosinophils # (auto) 0.22 K/uL (0.00-0.50); Eosinophils % (auto) 2.8 %; Immature Granulocytes # (auto) 0.03 K/uL (0.01-0.20); Immature Granulocytes % (auto) 0.4 %; Lymphocytes # (auto) 1.85 K/uL (1.20-3.40); Lymphocytes % (auto) 23.2 %; Monocytes # (auto) 0.61 K/uL (0.11-0.59); Monocytes % (auto) 7.6 %; Neutrophils # (auto) 5.25 K/uL (1.40-6.50); Neutrophils % (auto) 65.7 %
[2023-07-28] MEDS: hydrALAZINE HCL 20 MG/ML VIAL IV STA (15:33)
--- NOTE | 2023-07-28 16:06 | XRay Report ---
XR chest 1V portable HISTORY: 88 years-old Female Chest pain, nonspecific COMPARISON: 05/20/2023 TECHNIQUE: AP view the chest FINDINGS: Cardiac silhouette is enlarged. Electronic device again noted projected over the left heart border. N o pneumothorax, pleural effusion or airspace consolidation. The bones appear intact. Hiatal hernia singleton spected. IMPRESSION: No acute process. ACT 112: Negative or not required by law. The above report was generated using voice recognition software. It may contain grammatical, syntax o r spelling errors. Electronically signed by: Dimas Calles M.D. 07/28/2023 4:05 PM
--- NOTE | 2023-07-28 16:47 | History & Physical Report ---
Date of Service July 28, 2023 History of Present Illness Primary Care Provider: Suzanne Holloway MD Allergies Allergy/AdvReac Type Severity Reaction Status Date / Time alendronate sodium Allergy Severe tongue Verified 09/16/22 10:54 swelling lisinopril Allergy Verified 09/16/22 10:54 Alendrnate Allergy Unknown unknown Uncoded 09/16/22 10:54 Home Medications Medication Instructions Recorded Confirmed Type lancets [facility]a 05/27/20 07/12/23 History Lancets) terazosin 2 mg capsule 2 mg PO HS 05/27/20 07/12/23 History cholecalciferol (vitamin D3) 25 50 mcg PO DAILY 06/11/20 07/12/23 History mcg (1,000 unit) capsule blood sugar diagnostic ([facility] 12/26/20 07/12/23 History Verio test strips) atorvastatin 40 mg tablet 40 mg PO DAILY #30 tabs 06/26/21 07/12/23 Rx potassium chloride 10 mEq 10 meq PO BID 06/03/22 07/12/23 History tablet,extended release melatonin 5 mg disintegrating 5 mg PO HS #30 tabs 06/11/22 05/20/23 Rx tablet alprazolam 0.25 mg tablet (Xanax) 0.25 mg PO TID PRN anxiety 90 days 12/11/22 07/12/23 Rx #270 tabs lamotrigine 50 mg tablet,extended 50 mg PO BID #180 tabs 01/07/23 07/12/23 Rx release 24 hr amoxicillin 500 mg capsule 2,000 mg PO ONCE PRN 1 hr prior to 05/20/23 07/12/23 History dental appt carvedilol 6.25 mg tablet 6.25 mg PO UD 05/20/23 07/12/23 History escitalopram oxalate 10 mg tablet 5 mg PO DAILY 05/20/23 07/12/23 History hydrochlorothiazide 25 mg tablet 25 mg PO DAILY 07/12/23 07/12/23 History Past Med/Surg History Problem List (Updated 07/12/23 @ 16:15 by STEFAN Berger) Poor short term memory Blurry vision, left eye Chronic kidney disease, stage 3a Insomnia Chronic renal insufficiency (Chronic) Hyperlipidemia (Chronic) Meningioma (Acute) Generalized anxiety disorder (Acute) Dyslipidemia (Acute) Hypertension (Chronic) Seizure disorder (Acute) Syncope and collapse (Acute) Essential tremor (Acute) Type 2 diabetes mellitus (Chronic) Medical History Chronic renal insufficiency Weight disorder Ventricular premature beats Transient cerebral ischemia Syncope Seborrheic dermatitis of scalp Sacral insufficiency fracture Rosacea Right facial numbness Right arm numbness Osteoporosis Nummular eczema Mental confusion IFG (impaired fasting glucose) Lichen simplex chronicus Hx of uterine prolapse Constipation Chronic paronychia of toe Borderline osteopenia Borderline diabetes mellitus Arthritis Ankle pain Angioedema Acute lumbar radiculopathy Acquired ptosis of eyelid Anxiety Seizure LAST--06/2017 PER PT SHE "JUST PASSES OUT FOR A MINUTE OR TWO" Hypertension Hyperlipidemia Surgical History History of bladder surgery CYSTOCELE REPAIR History of bilateral tubal ligation History of ankle surgery RIGHT ANKLE FX REPAIR--PINS AND RODS IN PLACE History of total left knee replacement (TKR) H/O abdominal hysterectomy History of colonoscopy History of tooth extraction WISDOM TEETH History of tonsillectomy and adenoidectomy H/O bilateral cataract extraction Status post placement of implantable loop recorder Family History Family/Other Colorectal cancer Father COPD (chronic obstructive pulmonary disease) Emphysema, unspecified Mother Hypertension Syncope Sister Cardiovascular disease Social History Smoking Status: Never smoker Second Hand Exposure: No; Do You Dip or Chew Tobacco: No; Hx Alcohol Use: No Hx Substance Use: No Preferred Language: Malaysian Communication Ability: Effective Records And Tape Recordings Engineer Required: No Beliefs That Will Affect Care: Baptism Baptism Beliefs: [employer] Current Living Situation: Spouse Feels Safe at Home: Yes Assistive Devices: Denture - Upper and Glasses Results & Data Results & Data Vital Signs (Past 12 Hours) Vital Signs Temp Pulse Pulse Resp BP BP Pulse Ox 07/28/23 16:45 78 07/28/23 16:20 195/85 H 07/28/23 16:20 73 16 98 07/28/23 16:10 181/81 H 07/28/23 16:10 76 17 98 07/28/23 16:00 189/80 H 07/28/23 16:00 74 17 98 07/28/23 15:51 74 22 97 07/28/23 15:51 196/81 H 07/28/23 15:50 74 18 98 07/28/23 15:43 181/84 H 07/28/23 15:43 72 23 97 07/28/23 15:40 212/87 H 07/28/23 15:40 73 19 98 07/28/23 15:30 63 17 95 07/28/23 15:30 224/137 H 07/28/23 15:20 67 17 96 07/28/23 15:20 177/105 H 07/28/23 15:10 65 20 97 07/28/23 15:10 207/89 H 07/28/23 15:05 217/107 H 07/28/23 15:05 68 20 98 07/28/23 15:04 238/94 H 07/28/23 15:04 67 19 97 07/28/23 15:00 223/89 H 07/28/23 15:00 65 19 97 07/28/23 15:00 66 16 223/89 H 97 07/28/23 14:52 69 20 98 07/28/23 14:46 70 19 208/106 H 95 07/28/23 14:21 97 07/28/23 14:21 36.8 C 66 14 210/94 H 97 07/28/23 14:20 98 O2 Del Method 07/28/23 16:45 07/28/23 16:20 07/28/23 16:20 07/28/23 16:10 07/28/23 16:10 07/28/23 16:00 07/28/23 16:00 07/28/23 15:51 07/28/23 15:51 07/28/23 15:50 07/28/23 15:43 07/28/23 15:43 07/28/23 15:40 07/28/23 15:40 07/28/23 15:30 07/28/23 15:30 07/28/23 15:20 07/28/23 15:20 07/28/23 15:10 07/28/23 15:10 07/28/23 15:05 07/28/23 15:05 07/28/23 15:04 07/28/23 15:04 07/28/23 15:00 07/28/23 15:00 07/28/23 15:00 Room Air 07/28/23 14:52 07/28/23 14:46 Room Air 07/28/23 14:21 Room Air 07/28/23 14:21 Room Air 07/28/23 14:20 Room Air Code Status & VTE Plan VTE Prophylaxis Plan VTE Prophylaxis will be ordered: Yes
--- NOTE | 2023-07-28 16:53 | Electrocardiogram Report ---
Test Reason : Blood Pressure : / mmHG Vent. Rate : 065 BPM Atrial Rate : 065 BPM P-R Int : 210 ms QRS Dur : 078 ms QT Int : 390 ms P-R-T Axes : 082 003 041 degrees QTc Int : 405 ms Sinus rhythm with 1st degree A-V block Low voltage QRS Borderline ECG When compared with ECG of 20-MAY-2023 15:34, No significant change was found Confirmed by Dom Gupta ([id number]) on 07/28/2023 4:53:06 PM Referred By: REFERRED SELF Confirmed By:Bradley Gupta
[2023-07-28] MEDS ORDERED: PHARMACIST DISCHARGE MED REC CONSULT PRN (17:19)
--- NOTE | 2023-07-28 17:48 | History & Physical Report ---
Date of Service July 28, 2023 Assessment & Plan (1) Syncope: Plan: -Admit to the PCU on tele -Currently hypertensive at 184/86 but otherwise stable -Presented to the ED after experiencing 2 syncopal episodes this am -Did not have symptoms prior to the syncopal episodes, no reported seizure-like activity -CT of the head/brain wo con shows A focus of right cerebellar encephalomalacia is new from 05/20/2023, which likely represents a late subacute/evolving infarct -Unsure if she exacerbated this possible infarct by taking her antihypertensives earlier today -Currently without focal neuro defects on exam -Will obtain CTA of the head/neck and MRI of the brain wo/w con for further evaluation -Will allow permissive HTN overnight -Will obtain TTE tomorrow -Neurology consult placed as they follow her outpatient -Seizure precautions, fall/aspiration precautions -Will give 324 mg Aspirin now, continue statin -Follow am A1c and fasting lipid panel -Q4h neuro checks -PT/OT consults -Dysphagia screen, HH/DMII -AM CBC, CMP, mag, PT/INR, A1C, Fasting lipid panel (2) Hypertension: Plan: -Continue to allow permissive HTN for now -If needed will add prn IV antihypertensives (3) Seizure disorder: Plan: -Will follow MRI W/WO con -Continue BID Lamicatal for now (4) Type 2 diabetes mellitus: Plan: -Monitor BSG ACHS, goal is 110-160 -No on outpatient medications at this time -Will start CF 50 and CR of 15 ACHS for now -Monitor AM A1c (5) Right knee pain: Plan: -Patient has been having right knee pain/swelling since her fall this am -Will obtain xray of the right knee for further evaluation -PRN Tylneol, PT/OT Plan The patient was discussed with Dr. Baron at the time of the admission History of Present Illness Chief Complaint: Multiple syncopal episodes Primary Care Provider: Darby Elaine MD Destiney is a 88 year old female with a PMH significant for seizure disorder (on Lamictal), HTN, dyslipidemia, DMII, meningioma, and previous syncopal episodes who presented to the [facility] ED on 07/28/23 after experiencing 2 syncopal episodes this am. On arrival to the ED she was noted to be hypertensive at 238/94 but was otherwise stable. Labs were significant for a sodium of 134. Chest xray was negative for acute findings. CT of the head/brain wo con was read as "1. There is no hemorrhage, mass effect, or evidence of acute territorial ischemia by CT criteria. 2. A focus of right cerebellar encephalomalacia is new from 05/20/2023. This likely represents a late subacute/evolving infarct. Correlate clinically. 3. Additional findings as above.". Prior to admission the patient was given 10 mg IV hydralazine. At the time of the exam the patient was sitting in bed in no acute distress with a friend bedside. History was obtained from both as the patient gave permission for her friend to be present. The patient's is currently on home hospice. The patient states she was walking to their bedroom when she had a sudden loss of consciousness. The episode was witnessed by the patient's 's Hospice Nurse who reported that the patient was only unconscious for a few seconds before waking. The patient denies prodromal symptoms such as chest pain, palpitations, lightheadedness/dizziness prior to the episode occurring. The hospice nurse got the patient into a chair and was attempting to take her BP when the patient had another sudden loss of consciousness. She did hit her head and has a small upper lip laceration that is not currently bleeding. She also is experiencing right knee pain since the fall. When asked, the patient has also been experiencing intermittent blurry vision of the left eye and mild headaches over the past week. She denies current headache, current vision changes, new paresthesias/unilateral weakness, chest pain,SOB, cough, abd pain, nausea, vomiting, diarrhea, dysuria, hematuria, melena, LE swelling. She did have her am medications including her HCTZ and am Lamictal prior to her syncopal episodes. She is a DNR/DNI and her and daughter are her primary decisions makers if she cannot make decisions for herself. Please refer to Dr. Baron's attestation for any changes to the treatments plans Allergies Allergy/AdvReac Type Severity Reaction Status Date / Time alendronate sodium Allergy Severe tongue Verified 07/28/23 16:49 swelling lisinopril Allergy Unknown Verified 07/28/23 16:49 Home Medications Medication Instructions Recorded Confirmed Type lancets 33 gauge ([employer] Delica #100 ea 05/27/20 07/28/23 History Lancets) terazosin 2 mg capsule 2 mg PO HS 05/27/20 07/28/23 History cholecalciferol (vitamin D3) 25 50 mcg PO DAILY 06/11/20 07/28/23 History mcg (1,000 unit) capsule blood sugar diagnostic ([facility] 12/26/20 07/28/23 History Verio test strips) atorvastatin 40 mg tablet 40 mg PO DAILY #30 tabs 06/26/21 07/28/23 Rx potassium chloride 10 mEq 10 meq PO BID 06/03/22 07/28/23 History tablet,extended release alprazolam 0.25 mg tablet (Xanax) 0.25 mg PO TID PRN anxiety 90 days 12/11/22 07/28/23 Rx #270 tabs lamotrigine 50 mg tablet,extended 50 mg PO BID #180 tabs 01/07/23 07/28/23 Rx release 24 hr amoxicillin 500 mg capsule 2,000 mg PO ONCE PRN 1 hr prior to 05/20/23 07/28/23 History dental appt carvedilol 6.25 mg tablet 6.25 mg PO BID 05/20/23 07/28/23 History escitalopram oxalate 10 mg tablet 5 mg PO DAILY 05/20/23 07/28/23 History hydrochlorothiazide 25 mg tablet 25 mg PO DAILY 07/12/23 07/28/23 History melatonin 5 mg disintegrating 5 mg PO HS PRN Sleep 07/28/23 07/28/23 History tablet Past Med/Surg History Problem List (Updated 07/28/23 @ 18:46 by Stu Gilbert DO) Stroke (Acute) HTN (hypertension) (Acute) Acute hyponatremia (Acute) Syncope (Acute) Right knee pain Syncope Poor short term memory Blurry vision, left eye Chronic kidney disease, stage 3a Insomnia Chronic renal insufficiency (Chronic) Hyperlipidemia (Chronic) Meningioma (Acute) Generalized anxiety disorder (Acute) Dyslipidemia (Acute) Hypertension (Chronic) Seizure disorder (Acute) Syncope and collapse (Acute) Essential tremor (Acute) Type 2 diabetes mellitus (Chronic) Medical History Chronic renal insufficiency Weight disorder Ventricular premature beats Transient cerebral ischemia Syncope Seborrheic dermatitis of scalp Sacral insufficiency fracture Rosacea Right facial numbness Right arm numbness Osteoporosis Nummular eczema Mental confusion IFG (impaired fasting glucose) Lichen simplex chronicus Hx of uterine prolapse Constipation Chronic paronychia of toe Borderline osteopenia Borderline diabetes mellitus Arthritis Ankle pain Angioedema Acute lumbar radiculopathy Acquired ptosis of eyelid Anxiety Seizure LAST--06/2017 PER PT SHE "JUST PASSES OUT FOR A MINUTE OR TWO" Hypertension Hyperlipidemia Surgical History History of bladder surgery CYSTOCELE REPAIR History of bilateral tubal ligation History of ankle surgery RIGHT ANKLE FX REPAIR--PINS AND RODS IN PLACE History of total left knee replacement (TKR) H/O abdominal hysterectomy History of colonoscopy History of tooth extraction WISDOM TEETH History of tonsillectomy and adenoidectomy H/O bilateral cataract extraction Status post placement of implantable loop recorder Family History Family/Other Colorectal cancer Father COPD (chronic obstructive pulmonary disease) Emphysema, unspecified Mother Hypertension Syncope Sister Cardiovascular disease Social History Smoking Status: Never smoker Second Hand Exposure: No; Do You Dip or Chew Tobacco: No; Hx Alcohol Use: No Hx Substance Use: No Preferred Language: Kiswahili Communication Ability: Effective Uniform Designer Required: No Beliefs That Will Affect Care: None Current Living Situation: Spouse Other Information That Helps Us Care for You: No Feels Safe at Home: Yes Safety Concerns: Feels Safe At This Time Assistive Devices: Cane, Denture - Upper and Walker Physical Exam Physical Exam: Physical Exam: General: In no acute distress, stated age, well-nourished, good hygiene HEENT: Normocephalic, small laceration of the upper lip is not currently bleeding, no scleral icterus, pupils around round, symmetrical, and reactive to light, moist mucus membranes, trachea midline, no thyromegaly Chest/Pulm: No respiratory distress, symmetrical chest expansion, clear breath sounds throughout Cardiac: RRR, no murmurs noted Abdomen: Negative for ascites and bruising, normoactive bowel sounds, soft, non-tender to palpation throughout Musculoskeletal: Right knee with mild swelling and tenderness to palpation, patient with intact ROM but with associated pain, no other trauma on exam Extremities: Radial, dorsalis pedis, and posterior tibial pulses are intact and symmetrical, no edema noted in the BL LE's Skin: as described above Neuro: Alert and oriented to person, place, month, year, and president, no focal defects, CN II-XII tested and intact, negative cerebellar/pronator drift in the BL upper extremities, no tremors noted Psych: No acute distress, calm and cooperative during the exam Results & Data Results & Data Vital Signs (Past 12 Hours) Vital Signs Temp Pulse Pulse Resp BP BP Pulse Ox 07/28/23 17:30 83 20 98 07/28/23 17:20 75 19 98 07/28/23 17:20 184/86 H 07/28/23 17:10 198/90 H 07/28/23 17:10 79 19 97 07/28/23 17:00 189/84 H 07/28/23 17:00 75 15 97 07/28/23 16:50 198/91 H 07/28/23 16:50 76 15 98 07/28/23 16:45 78 07/28/23 16:40 167/96 H 07/28/23 16:40 79 17 98 07/28/23 16:38 83 22 99 07/28/23 16:20 195/85 H 07/28/23 16:20 73 16 98 07/28/23 16:10 181/81 H 07/28/23 16:10 76 17 98 07/28/23 16:00 189/80 H 07/28/23 16:00 74 17 98 07/28/23 15:51 74 22 97 07/28/23 15:51 196/81 H 07/28/23 15:50 74 18 98 07/28/23 15:43 181/84 H 07/28/23 15:43 72 23 97 07/28/23 15:40 212/87 H 07/28/23 15:40 73 19 98 07/28/23 15:30 63 17 95 07/28/23 15:30 224/137 H 07/28/23 15:20 67 17 96 07/28/23 15:20 177/105 H 07/28/23 15:10 65 20 97 07/28/23 15:10 207/89 H 07/28/23 15:05 217/107 H 07/28/23 15:05 68 20 98 07/28/23 15:04 238/94 H 07/28/23 15:04 67 19 97 07/28/23 15:00 223/89 H 07/28/23 15:00 65 19 97 07/28/23 15:00 66 16 223/89 H 97 07/28/23 14:52 69 20 98 07/28/23 14:46 70 19 208/106 H 95 07/28/23 14:21 97 07/28/23 14:21 36.8 C 66 14 210/94 H 97 07/28/23 14:20 98 O2 Del Method 07/28/23 17:30 07/28/23 17:20 07/28/23 17:20 07/28/23 17:10 07/28/23 17:10 07/28/23 17:00 07/28/23 17:00 07/28/23 16:50 07/28/23 16:50 07/28/23 16:45 07/28/23 16:40 07/28/23 16:40 07/28/23 16:38 07/28/23 16:20 07/28/23 16:20 07/28/23 16:10 07/28/23 16:10 07/28/23 16:00 07/28/23 16:00 07/28/23 15:51 07/28/23 15:51 07/28/23 15:50 07/28/23 15:43 07/28/23 15:43 07/28/23 15:40 07/28/23 15:40 07/28/23 15:30 07/28/23 15:30 07/28/23 15:20 07/28/23 15:20 07/28/23 15:10 07/28/23 15:10 07/28/23 15:05 07/28/23 15:05 07/28/23 15:04 07/28/23 15:04 07/28/23 15:00 07/28/23 15:00 07/28/23 15:00 Room Air 07/28/23 14:52 07/28/23 14:46 Room Air 07/28/23 14:21 Room Air 07/28/23 14:21 Room Air 07/28/23 14:20 Room Air Laboratory Results Abnormal lab results 07/28/23 Range/Units 14:20 RBC 4.11 L (4.20-5.40) M/uL Hct 36.6 L (37.0-47.0) % [place] # (Auto) 0.61 H (0.11-0.59) K/uL Sodium 134 L (136-145) mmol/L Glucose 108 H (70-99(Fasting)) mg/dl Diagnostic Findings Chest X-Ray 07/28/23 14:16 XR chest 1V portable HISTORY: 88 years-old Female Chest pain, nonspecific COMPARISON: 05/20/2023 TECHNIQUE: AP view the chest FINDINGS: Cardiac silhouette is enlarged. Electronic device again noted projected over the left heart border. No pneumothorax, pleural effusion or airspace consolidation. The bones appear intact. Hiatal hernia suspected. IMPRESSION: No acute process. ACT 112: Negative or not required by law. The above report was generated using voice recognition software. It may contain grammatical, syntax or spelling errors. Electronically signed by: Dimas Calles M.D. 07/28/2023 4:[address] 07/28/23 14:16 CT SCAN OF THE BRAIN WITHOUT IV CONTRAST CLINICAL HISTORY: Fall. Syncope. COMPARISON STUDY: CT of the brain dated 05/20/2023. TECHNIQUE: Unenhanced axial CT scan of the brain is performed from the vertex to the skull base. A dose lowering technique was utilized adhering to the principles of ALARA. CT DOSE: 547.75 mGy.cm FINDINGS: Brain parenchyma: A focus of right cerebellar encephalomalacia is new from 05/20/2023 likely representing late subacute/evolving infarct. There is age- related involutional change noting moderate subcortical and periventricular microangiopathic disease. There is no hemorrhage, mass effect, or evidence of acute territorial ischemia by CT criteria. A 12 mm high left parafalcine calcified meningioma is unchanged. Becker-white matter differentiation is preserved. No extra-axial fluid collection is seen. Ventricles, sulci, cisterns: Prominent secondary to involutional change. Cavum septum pellucidum is incidentally noted. Intracranial vasculature: There is atherosclerotic calcification of the cavernous carotid and vertebral arteries. Calvarium: The skeletal structures are osteopenic. No depressed calvarial fracture is identified. Sinuses and mastoids: The visualized paranasal sinuses are clear. The mastoid air cells are well pneumatized. Orbits: The bony orbits are grossly intact. There are bilateral ocular lens implants. IMPRESSION: 1. There is no hemorrhage, mass effect, or evidence of acute territorial ischemia by CT criteria. 2. A focus of right cerebellar encephalomalacia is new from 05/20/2023. This likely represents a late subacute/evolving infarct. Correlate clinically. 3. Additional findings as above. ACT 112: Negative or not required by law. Electronically signed by: Pardeep Cosby M.D. 07/28/2023 2:59 PM ECG Additional Comments: Sinus rhythm with 1st degree A-V block Low voltage QRS Borderline ECG When compared with ECG of 20-MAY-2023 15:34, No significant change was found Confirmed by Dom Gupta ([id number]) on 07/28/2023 4:53:06 PM Code Status & VTE Plan Code Status DNR/DNI VTE Prophylaxis Plan VTE Prophylaxis will be ordered: Yes Supervising Physician Co-Signing Physician Notes I personally saw and examined the patient. I verified all johnston points and agree with Vito Mar PA-C with the following exceptions and/or additions: 88 year old right handed female presents to the ER following a syncopal event. subacute CVA noted on CT head. Ongoing mild intermittent left vision blurring but none currently. No diplopia. No chest pain, shortness of breath or lightheadedness prior to falling O/E HS RRR, no murmurs, Chest CTAB, Abdo SNT, no pronator drift, CN2-> 12 intact, mild decreased co-ordination finger-nose testing on left side, otherwise normal power and sensation in all 4 extremities A/P Abnormal CT head - concerning for subacute CVA, will restart back on her carvedilol as doubtful CVA in the last 24-48 hours, aspirin, atorvastatin, TTE, monitor on telemetry for atrial fibrillation Syncope - TTE, monitor on telemetry for arrhythmia PG Care Time/CCT Total # of Minutes Spent Total Time Spent with Patient: Total time spent is greater than 50% in coordination of care (as documented) at patient's floor/unit and/or counseling patient: Coding [place] [address] INT INP/OBS CARE 3/75MIN Patient Type Established Medical Decision Making High Complexity Diagnoses Syncope R55 Hypertension I10 Seizure disorder G40.909 Type 2 diabetes mellitus E11.9 Right knee pain M25.561
[2023-07-28] MEDS ORDERED: CARBOHYDRATES FOR HYPOGLYCEMIA PO PRN (17:53)
[2023-07-28] MEDS ORDERED: GLUCOSE 10 TAB/TUBE PO PRN (17:53)
[2023-07-28] MEDS ORDERED: DEXTROSE 50% 50 ML SYRINGE IV PRN (17:53)
[2023-07-28] MEDS ORDERED: GLUCOSE 40% GEL 15 GM TUBE PO PRN (17:53)
[2023-07-28] MEDS ORDERED: GLUCAGON FOR INJ 1 MG VIAL SQ PRN (17:53)
[2023-07-28] MEDS: ASPIRIN CHEW 324 MG PO STA (18:04)
[2023-07-28] MEDS: LORazepam 0.5 MG in SYRINGE 0.25 ML IV PRN (18:18)
[2023-07-28] MEDS: OPTIRAY 320 125ml IV ONE (18:25)
--- NOTE | 2023-07-28 18:43 | CT Scan Report ---
CT ANGIOGRAM OF THE BRAIN; CT ANGIOGRAM OF THE NECK CLINICAL HISTORY: Strokelike symptoms. COMPARISON STUDY: Unenhanced CT of the brain performed the same day 07/28/2023. CT venogram of the he ad and neck dated 03/11/2012. TECHNIQUE: Following the IV administration of 119 of Optiray 320, CT angiogram of the head and neck w as performed from the aortic arch to the vertex. Images are reviewed in the axial, sagittal, and vincent nal planes. 3-D MIPS images are created and assessed. IV contrast was administered without complicati on. All measurements were calculated based on NASCET criteria. A dose lowering technique was utilize d adhering to the principles of ALARA. CT DOSE: 426.18 mGy.cm FINDINGS: Brain parenchyma: There is age-related involutional change and a moderate to advanced subcortical and periventricular microcatheter pathic disease. There is no evidence of hemorrhage, mass effect, or ac bill moore's slough territorial ischemia noting angiographic phase technique. Right cerebellar encephalomalacia is ag ain noted, and is new from 05/20/2023. This likely presents a late subacute/evolving infarct. There is no evidence of enhancing mass lesion on the angiogram phase images. The ventricles, sulci, and cister ns are prominent secondary to involutional change. Cavum septum pellucidum is incidentally noted. Gra y-white matter differentiation is preserved. No extra-axial fluid collection is seen. Thoracic aorta: There is atherosclerotic calcification of the thoracic. Visualized portions of the th oracic aorta are normal in caliber. The aortic arch demonstrates standard 3-vessel anatomy. Right carotid arterial system: The right common carotid artery is widely patent, as are the right int ernal and external carotid arteries. Advanced calcified plaque is noted in the carotid bulb. Left carotid arterial system: The left common carotid artery is widely patent, as are the left customer marketing intern al and external carotid arteries. Advanced calcified plaque is seen in the carotid bulb. Vertebral arteries: The vertebral arteries are widely patent bilaterally noting right-sided dominance . Subclavian arteries: Widely patent bilaterally. Intracranial vasculature: The internal carotid arteries are patent at the skull base, as are the ante rior and middle cerebral arteries bilaterally. The vertebrobasilar system and posterior cerebral tommy rodrigo are widely patent. The right vertebral artery is dominant. There is origin of the right po sterior cerebral artery. A posterior communicating artery is seen on the left. There is no aneurysm, high-grade stenosis, or focal vessel cut off seen throughout the intracranial circulation. Jugular veins: Patent bilaterally. Dural sinuses: Patent. Lung apices: Partially visualized upper lobe lung parenchyma appears clear. Soft tissues: The visualized pharyngeal soft tissues are normal in appearance noting angiographic pha se technique. The oropharyngeal airway appears widely patent. The thyroid gland is enlarged and heter ogeneous, typical for goiter. The salivary glands are normal in appearance. No cervical lymphadenopat hy is seen. Skeletal structures: The skeletal structures are osteopenic. The calvarium appears intact. The cervic al spine is maintained noting advanced multilevel spondylosis. Orbits: The bony orbits are intact. Orbital contents are normal as visualized noting bilateral ocular lens implants. Sinuses and mastoids: There is trace to be mucosal thickening within the maxillary antra. The remaini ng paranasal sinuses are clear. The mastoid air cells are well pneumatized. IMPRESSION: 1. There is no evidence of hemorrhage, mass effect, or acute territorial ischemia noting angiographic phase technique. 2. Inferior right cerebellar encephalomalacia is new from 05/20/2023 and likely represents a late subac bill moore's slough/evolving infarct. 3. Unremarkable CT angiogram of the brain. 4. Unremarkable CT angiogram of the neck. ACT 112: Negative or not required by law. Electronically signed by: Pardeep Cosby M.D. 07/28/2023 6:40 PM
[2023-07-28] MEDS: GADOBUTROL 65ML VIAL IV ONE (19:39)
[2023-07-28] MEDS ORDERED: MELATONIN 3 MG TAB PO PRN (20:30)
[2023-07-28] MEDS ORDERED: LABETALOL HCL IV 5 MG/ML 20ML IV PRN (20:53)
[2023-07-28] MEDS: INSULIN ASPART PER UNIT CHARGE SC SCH (21:16)
[2023-07-28] MEDS: ALPRAZolam 0.25 MG TABLET PO PRN (21:23)
[2023-07-28] MEDS: carvediloL 6.25 MG TAB PO SCH (21:23)
--- NOTE | 2023-07-28 22:01 | Magnetic Resonance Report ---
Exam(s): MRI HEAD EXAM: MR Head Without Intravenous Contrast CLINICAL HISTORY: Reason for exam: syncope, hx seizures, possible CVA. TECHNIQUE: Magnetic resonance images of the head/brain without intravenous contrast in multiple planes. COMPARISON: No relevant prior studies available. FINDINGS: Brain: Restricted diffusion involving the right cerebellar hemisphere along the inferior aspect of the cerebellar hemisphere. No hemorrhage. Ventricles: Unremarkable. No ventriculomegaly. Bones/joints: Unremarkable. No acute fracture. Sinuses: Unremarkable as visualized. No acute sinusitis. Mastoid air cells: Unremarkable as visualized. No mastoid effusion. Orbits: Unremarkable as visualized. IMPRESSION: Acute right cerebellar hemispheric infarct Electronically signed by: Stu Templeton MD 07/28/23 22:00 PM
[2023-07-28] MEDS: lamoTRIgine 25 MG TAB PO SCH (22:44)
[2023-07-29 00:01] LABS: Appearance Urine Clear (Clear); Bacteria Urine Automated None Seen (None Seen); Bilirubin Urine Negative (Negative); Blood Urine Negative (Negative); Cast Urine Automated 0-2 /lpf (0-2); Color Urine Yellow; Epithelial Cell Urine Auto 0-2 /hpf (0-2); Glucose Urine UA Negative (Negative); Ketones Urine Negative (Negative); Leukocyte Esterase Urine 1+ (Negative); Nitrite Urine Negative (Negative); Protein Urine Negative (Negative); RBC Urine Automated 0-2 /hpf (0-2); Specific Gravity Urine > 1.045 (1.000-1.030); Urobilinogen Urine Negative (Negative); WBC Urine Automated 21-50 /hpf (0-5); pH Urine 7.5 (4.5-7.5)
[2023-07-29 06:39] LABS: Prothrombin Time 10.4 Seconds (9.0-12.0)
[2023-07-29 06:41] LABS: Albumin Globulin Ratio 1.2 (0.9-2); Albumin Level 3.5 gm/dl (3.4-5.0); BUN Creatinine Ratio 19.6 (10-20); Bilirubin,Total 0.5 mg/dl (0.2-1.0); Calcium 9.6 mg/dl (8.6-10.3); Chol HDL Ratio 2.7 (0-5); Creatinine Clr Calc Pharmacy 33.9 ml/min; Est GFR (African American) 50.8 ml/min; Est GFR (Non-African American) 43.8 ml/min; Globulin 2.9 gm/dl (2.5-4.0); Magnesium 1.9 mg/dl (1.7-2.4); Potassium 3.7 mmol/L (3.5-5.1); Total Protein 6.4 gm/dl (6.0-8.3)
[2023-07-29 07:17] LABS: Estimated Average Glucose 126 mg/dl
[2023-07-29 07:19] LABS: Hematocrit (blood only) 37.8 % (37.0-47.0); Hemoglobin 12.9 g/dl (12.0-16.0); Mean Corpuscular Hemoglobin 30.1 pg (25.0-34.0); Mean Corpuscular Hgb Conc 34.1 g/dL (32.0-36.0); Mean Corpuscular Volume 88.1 fL (80.0-100.0); Mean Platelet Volume 10.4 fL (9.4-12.4); Platelet Count 252 K/uL (130-400); RDW Coefficient of Variation 13.6 % (11.5-14.5); RDW Standard Deviation 43.8 fL (36.4-46.3); Red Blood Count 4.29 M/uL (4.20-5.40); White Blood Count 8.27 K/ul (4.8-10.8)
[2023-07-29 07:21] LABS: Basophils # (auto) 0.03 K/uL (0.00-0.20); Basophils % (auto) 0.4 %; Eosinophils # (auto) 0.18 K/uL (0.00-0.50); Eosinophils % (auto) 2.2 %; Immature Granulocytes # (auto) 0.02 K/uL (0.01-0.20); Immature Granulocytes % (auto) 0.2 %; Lymphocytes # (auto) 2.01 K/uL (1.20-3.40); Lymphocytes % (auto) 24.3 %; Monocytes # (auto) 0.75 K/uL (0.11-0.59); Monocytes % (auto) 9.1 %; Neutrophils # (auto) 5.28 K/uL (1.40-6.50); Neutrophils % (auto) 63.8 %; RBC Morphology Unremarkable
[2023-07-29] MEDS: carvediloL 6.25 MG TAB PO SCH (07:27)
--- NOTE | 2023-07-29 07:36 | XRay Report ---
RIGHT KNEE 2 VIEWS HISTORY: fall, right knee pain/swelling COMPARISON: None. FINDINGS: There is no fracture or dislocation. Mild anterior soft tissue swelling. No knee effusion. Moderate to severe tricompartmental osteoarthritis again noted. No radiopaque foreign bodies. IMPRESSION: No fractures. ACT 112: Negative or not required by law. Electronically signed by: Sarabjit Duque M.D. 07/29/2023 7:34 AM
[2023-07-29] MEDS: ESCITALOPRAM OXALATE 10 MG TAB PO SCH (08:59)
[2023-07-29] MEDS: ATORVASTATIN 40 MG TAB PO SCH (08:59)
[2023-07-29] MEDS: ASPIRIN 81 MG ECTAB PO SCH (08:59)
[2023-07-29] MEDS ORDERED: lamoTRIgine 25 MG TAB PO SCH (09:00)
--- NOTE | 2023-07-29 09:07 | Neurology Consultation ---
Date of Consultation July 29, 2023 Assessment & Plan (1) Syncope: History of Present Illness Attending Physician: Remi Davila MD History of Present Illness pt this morning feeling well. no further events and no other complaints. pt does not check her BP at home often and she had HTN urgency in ED with SBP in 230. she had no warning sign prior to the event. pt is well known to neurology and cardiology as she has had similar syncopal/near snycopal events for few years and followed by Dr. Guevara. chart reviewed. mri brain noted for subacute rt cerebellum ischemic stroke. admission HPI: Destiney is a 88 year old female with a PMH significant for seizure disorder (on Lamictal), HTN, dyslipidemia, DMII, meningioma, and previous syncopal episodes who presented to the [facility] ED on 07/28/23 after experiencing 2 syncopal episodes this am. On arrival to the ED she was noted to be hypertensive at 238/94 but was otherwise stable. Labs were significant for a sodium of 134. Chest xray was negative for acute findings. CT of the head/brain wo con was read as "1. There is no hemorrhage, mass effect, or evidence of acute territorial ischemia by CT criteria. 2. A focus of right cerebellar encephalomalacia is new from 05/20/2023. This likely represents a late subacute/evolving infarct. Correlate clinically. 3. Additional findings as above.". Prior to admission the patient was given 10 mg IV hydralazine. At the time of the exam the patient was sitting in bed in no acute distress with a friend bedside. History was obtained from both as the patient gave permission for her friend to be present. The patient's is currently on home hospice. The patient states she was walking to their bedroom when she had a sudden loss of consciousness. The episode was witnessed by the patient's 's Hospice Nurse who reported that the patient was only unconscious for a few seconds before waking. The patient denies prodromal symptoms such as chest pain, palpitations, lightheadedness/dizziness prior to the episode occurring. The hospice nurse got the patient into a chair and was attempting to take her BP when the patient had another sudden loss of consciousness. She did hit her head and has a small upper lip laceration that is not currently bleeding. She also is experiencing right knee pain since the fall. When asked, the patient has also been experiencing intermittent blurry vision of the left eye and mild headaches over the past week. She denies current headache, current vision changes, new paresthesias/unilateral weakness, chest pain,SOB, cough, abd pain, nausea, vomiting, diarrhea, dysuria, hematuria, melena, LE swelling. She did have her am medications including her HCTZ and am Lamictal prior to her syncopal episodes. She is a DNR/DNI and her and daughter are her primary decisions makers if she cannot make decisions for herself. Allergies Allergy/AdvReac Type Severity Reaction Status Date / Time alendronate sodium Allergy Severe tongue Verified 07/28/23 16:49 swelling lisinopril Allergy Unknown Verified 07/28/23 16:49 Home Medications Medication Instructions Recorded Confirmed Type lancets 33 gauge ([employer] [facility] [place] #100 ea 05/27/20 07/28/23 History Lancets) terazosin 2 mg capsule 2 mg PO HS 05/27/20 07/28/23 History cholecalciferol (vitamin D3) 25 50 mcg PO DAILY 06/11/20 07/28/23 History mcg (1,000 unit) capsule blood sugar diagnostic ([employer] 12/26/20 07/28/23 History Verio test strips) atorvastatin 40 mg tablet 40 mg PO DAILY #30 tabs 06/26/21 07/28/23 Rx potassium chloride 10 mEq 10 meq PO BID 06/03/22 07/28/23 History tablet,extended release alprazolam 0.25 mg tablet (Xanax) 0.25 mg PO TID PRN anxiety 90 days 12/11/22 07/28/23 Rx #270 tabs lamotrigine 50 mg tablet,extended 50 mg PO BID #180 tabs 01/07/23 07/28/23 Rx release 24 hr amoxicillin 500 mg capsule 2,000 mg PO ONCE PRN 1 hr prior to 05/20/23 07/28/23 History dental appt carvedilol 6.25 mg tablet 6.25 mg PO BID 05/20/23 07/28/23 History escitalopram oxalate 10 mg tablet 5 mg PO DAILY 05/20/23 07/28/23 History hydrochlorothiazide 25 mg tablet 25 mg PO DAILY 07/12/23 07/28/23 History melatonin 5 mg disintegrating 5 mg PO HS PRN Sleep 07/28/23 07/28/23 History tablet Patient History Medical History Chronic renal insufficiency Weight disorder Ventricular premature beats Transient cerebral ischemia Syncope Seborrheic dermatitis of scalp Sacral insufficiency fracture Rosacea Right facial numbness Right arm numbness Osteoporosis Nummular eczema Mental confusion IFG (impaired fasting glucose) Lichen simplex chronicus Hx of uterine prolapse Constipation Chronic paronychia of toe Borderline osteopenia Borderline diabetes mellitus Arthritis Ankle pain Angioedema Acute lumbar radiculopathy Acquired ptosis of eyelid Anxiety Seizure LAST--06/2017 PER PT SHE "JUST PASSES OUT FOR A MINUTE OR TWO" Hypertension Hyperlipidemia Surgical History History of bladder surgery CYSTOCELE REPAIR History of bilateral tubal ligation History of ankle surgery RIGHT ANKLE FX REPAIR--PINS AND RODS IN PLACE History of total left knee replacement (TKR) H/O abdominal hysterectomy History of colonoscopy History of tooth extraction WISDOM TEETH History of tonsillectomy and adenoidectomy H/O bilateral cataract extraction Status post placement of implantable loop recorder Family History Family/Other Colorectal cancer Father COPD (chronic obstructive pulmonary disease) Emphysema, unspecified Mother Hypertension Syncope Sister Cardiovascular disease Social History Smoking Status: Never smoker Second Hand Exposure: No; Do You Dip or Chew Tobacco: No; Hx Alcohol Use: No Hx Substance Use: No Preferred Language: Tamazight Communication Ability: Effective Stapler Hand Required: No Beliefs That Will Affect Care: None Current Living Situation: Spouse Other Information That Helps Us Care for You: No Feels Safe at Home: Yes Safety Concerns: Feels Safe At This Time Assistive Devices: Cane, Denture - Upper and Walker Review of Systems Review of Systems: All systems reviewed & are unremarkable except as noted in Subjective Constitutional: as per Subjective / HPI Eyes: as per Subjective / HPI Ear, Nose, Mouth, Throat: as per Subjective / HPI Respiratory: as per Subjective / HPI Cardiovascular: as per Subjective / HPI Gastrointestinal: as per Subjective / HPI Musculoskeletal: as per Subjective / HPI Integumentary: as per Subjective / HPI Neurologic: as per Subjective / HPI Psychiatric: as per Subjective / HPI Endocrine: as per Subjective / HPI Hematologic / Lymphatic: as per Subjective / HPI Allergy / Immunological: as per Subjective / HPI Exam (Neuro) Physical Exam: HEENT: normocephalic Neuro: Mental: AOx4, fluent speech, normal comprehension, no apraxia, no L/R confusion, no neglect CN: PERRL, Full EOM, symmetric face, intact sensation t/o face, midline T/U/P, 5/5 SCM/traps. Motor: No abnormal movements, normal tone and bulk, 5/5 t/o bilaterally Sens: intact to touch b/l grossly Coord: intact FNT b/l DTR: 2+ sym b/l Gait: deferred. Impression: 88 yo female with syncopal like event in setting of subacute rt cerebellum ischemic stroke. Pt with long hx of syncopal/near syncopal like events for few years and has had extensive work up by neurology and cardiology in the past. I do not feel she had seizure events. pt likely had syncopal event from uncontrolled HTN urgency from recent subacute stroke. Her rt cerebellum stroke also should not cause her to pass out or cause syncopal event. MRI brain appears to be more subacute in nature. Recommendations: 1. ASA as now. 3. finish stroke work up with echo with bubble. 4. no need for permissive HTN as her str raulito appears to be subacute in nature. avoid hypotension. 6. Long-term SBP goal less than 130. 7. Plenty of hydration . Avoid hypovol emia and hypotension. 8. Initiate DVT prevention therapy. 9. Avoid hypoglycemia, serum glucose goa l during hospitalization: 140-180. 10. Long-term HgA1c goal less than 7. 11. Start statin if not on it and no abs olute contraindication, long-term LDL goal less than 70. 12. Head of bed up 30 degrees if possibl e. 13. 14. Telemetry monitoring. 15. Fall precaution if pt's BP stable and pt feeling well, not much else to add. Strict BP monitoring at home and should f/u with cardiology and neurology as outpt as routine f/u. call again if new question. Chart reviewed I have spent more than 50% educating patient about potential diagnosis and neurological evaluation and coordinating care with patient's treatment team. Total time spent (including chart review and coordination of care): 60 min (this includes chart review). Results & Data Vital Signs (Past 12 Hours) Vital Signs Temp Pulse Pulse Resp BP Pulse Ox O2 Del Method 07/29/23 07:30 36.5 C 77 18 139/74 96 Room Air 07/29/23 02:31 36.4 C L 76 18 157/77 H 94 Room Air 07/28/23 22:47 36.5 C 81 18 113/64 96 Room Air 07/28/23 22:00 87 07/28/23 21:21 96 H 126/83 PG Care Time/CCT Total # of Minutes Spent Total Time Spent with Patient: Total time spent is greater than 50% in coordination of care (as documented) at patient's floor/unit and/or counseling patient: Coding Level of Care Code 60838 IN/OBS CONSULT LVL 4,60M Diagnoses Syncope R55 Syncope type: unspecified (1) Syncope Syncope type: unspecified Qualified Code(s): R55 - Syncope and collapse
--- NOTE | 2023-07-29 11:32 | Hospitalist Progress Note ---
Date of Service July 29, 2023 Assessment & Plan (1) Cerebellar stroke, acute: Plan: Right cerebellar ischemic CVA seen on MRI scan. OT and PT evaluations pending. Neurology consultation pending. Cardiac echo report pending. Fortunately she has no motor deficits. Hopefully she can return home but she may need IPR placement (2) Syncope: Plan: Apparently occurred twice prior to admission. No recurrence while hospitalized. Continue telemetry. Monitor blood pressure (3) Hypertension: Plan: Continue to allow permissive HTN. (4) Seizure disorder: Plan: Stable. Continue Lamictal (5) Type 2 diabetes mellitus: Plan: Diabetic diet. Sliding scale coverage. (6) Right knee pain: Plan: X-ray reveals degenerative joint disease without evidence of fracture. Symptomatic treatment. Plan To be determined by OT and PT evaluations. Hopefully she can be discharged tomorrow, July 29 Admission and Anticipated Discharge Date Admission Date: July 28, 2023 Subjective Alert and oriented. No distress. Brain MRI scan reveals evidence of acute right cerebellar CVA. Fortunately she has no motor deficits but states she feels a little lightheaded when she stands up. OT and PT assessments ordered and pending. Neurology consultation also pending. Cardiac echo report pending. Right knee x-ray reveals evidence of age-related arthritis without fracture. Review of Systems 2 Review of Systems: Constitutional-no fever or chills ENT-no blurred vision, no double vision, no epistaxis, no sore throat Respiratory-no cough, no wheezing, no shortness of breath Cardiac-no palpitations, no chest pain, no syncope GI-no nausea, vomiting, diarrhea, melena, hematochezia -no urinary retention, no urinary incontinence, no dysuria, no hematuria Musculoskeletal-no joint pain, no muscle tenderness Skin-no bruising, no rashes, no pruritus Neuro-no isolated weakness, no paresthesia. Some lightheadedness while standing Psych-no depression, no anxiety Physical Exam 2 Physical Exam: General-alert and oriented x3, no fever, no chills HEENT-head atraumatic and normocephalic, pupils equal and reactive to light, extraocular muscles intact Neck-no lymphadenopathy or thyromegaly, trachea midline Chest-clear to auscultation. No rales, wheezing or rhonchi Cardiac-regular rate and rhythm, normal S1 and S2 Abdomen-normal bowel sounds, no hepatosplenomegaly Extremities-no cyanosis, clubbing, or edema Neuro-cranial nerves II through XII intact, motor and sensory function within normal limits, strength symmetrical, no focal deficits Psych-normal affect, normal mood Results & Data Results & Data Vital Signs (Past 12 Hours) Vital Signs Temp Pulse Pulse Resp BP Pulse Ox O2 Del Method 07/29/23 07:30 36.5 C 77 18 139/74 96 Room Air 07/29/23 07:00 68 07/29/23 02:31 36.4 C L 76 18 157/77 H 94 Room Air Laboratory Results 07/29/23 05:37 07/29/23 05:37 PG Care Time/CCT Total # of Minutes Spent Total Time Spent with Patient: Total time spent is greater than 50% in coordination of care (as documented) at patient's floor/unit and/or counseling patient: Coding Level of Care Code 01350 SUB INP/OBS CARE 3/50MIN Diagnoses Cerebellar stroke, acute I63.9 Syncope R55 Hypertension I10 Seizure disorder G40.909 Type 2 diabetes mellitus E11.9 Right knee pain M25.561
--- NOTE | 2023-07-29 12:05 | Pharmacy Report ---
- Date of Service July 29, 2023 - Pharmacy CVA/TIA Medication Review Medications to Prevent Stroke handout has been added to the patients discharge packet. Antiplatelet(s) * aspirin 81mg PO daily Cholesterol * High intensity statin: atorvastatin 40 mg daily DVT Prophylaxis * SCD knee Therapeutic Anticoagulation * No history of Afib/Aflutter noted Type 2 Diabetes * Patient does not have T2DM
--- NOTE | 2023-07-29 14:41 | XCELERA ---
[id number]
--- OUTSIDE RECORDS SUMMARY | 2023-07-29 23:33 | External Medical Summary | Continuity of Care Document ---
Author Name Unknown Organization [facility] [address] [address] [place] [phone] Care Team Providers Care Wall Taper Name Role Phone Darby Elaine Primary Care Physician [phone] [facility]counter [facility] [id number] Date(s): 07/15/23 - 07/15/23 [facility] [address] [facility] [address] [phone] Encounter Diagnosis Body mass index [BMI] 33.0-33.9, adult(Discharge Diagnosis) - 07/15/23 Syncope(Discharge Diagnosis) - 07/15/23 Elevated serum creatinine(Discharge Diagnosis) - 07/15/23 Other specified abnormal findings of blood chemistry(Final) - Discharge Disposition: Home or Self Care Attending Physician: MD Rouse Jonathan D Allergies, Adverse Reactions, Alerts Substance Reaction Severity Status lisinopril LIP Swelling Active amLODIPine Angioedema Active alendronate 1, 2 Constipation edema hypertension Anaphylaxis Active 1lip swelling/increased BP 2lip swelling BP increase Immunizations Given and Recorded Vaccine Date Status Refusal Reason influenza virus vaccine, inactivated 02/04/22 Give n influenza virus vaccine, inactivated 01/16/21 Give n influenza virus vaccine, inactivated 11/21/19 Give n influenza virus vaccine, inactivated 01/06/19 Give n influenza virus vaccine, inactivated 11/29/17 Give n influenza virus vaccine, inactivated 12/26/14 Give n SARS-CoV-2 (COVID-19) mRNA BNT-162b2 vax 05/24/20 Recorded SARS-CoV-2 (COVID-19) mRNA BNT-162b2 vax 05/03/20 Recorded SARS-CoV-2 (COVID-19) mRNA-1273 vaccine 1 2/18/21 Recorded pneumococcal 13-valent vaccine 11/29/17 Given 1Result Comment: Date wrong per patietn Medications ALPRAZolam 0.25 mg oral tablet Start: 12/26/14 9:59:45, 1 tab, PO, tid, Disp# 90 tab, Refills: 2, PRN: as needed for anxiety Start Date: 12/26/14 Status: Ordered amoxicillin 500 mg oral capsule Start: 02/23/22 12:55:00 EST, See Instructions, Disp# 4 cap, Refills: 1, TAKE 4 CAPSULES 1 HOUR BEFORE DENTAL APPOINTMENT., Pharmacy: [facility] Start Date: 02/23/22 Status: Ordered Coreg 6.25 mg oral tablet Start: 04/09/22 15:50:00 EST, 1 tab, PO, bid, Disp# 180 tab, Refills: 3, Pharmacy: [facility] Start Date: 04/09/22 Status: Ordered EpiPen 2-Ethan 0.3 mg injectable kit Start: 10/19/18 8:44:00 EDT, 0.3 mg =, IM, ONCE, Disp# 1 unit, Refills: 1, PRN: as needed for anaphylaxis, Pharmacy: [facility] Start Date: 10/19/18 Status: Ordered hydroCHLOROthiazide 25 mg oral tablet Start: 10/07/22 14:45:00 EDT, See Instructions, Disp# 90 tab, Refills: 3, TAKE 1 TABLET BY MOUTH ONCE DAILY., Pharmacy: [facility] Start Date: 10/07/22 Status: Ordered Hytrin 2 mg oral capsule Start: 03/16/23 13:00:00 EST, 1 cap, PO, qhs, Disp# 90 cap, Refills: 3, Pharmacy: [facility]/pharmacy #[id number] Start Date: 03/16/23 Status: Ordered KETOP20/BAC2/CYCL2/GABA6 IN LIPODERM Start: 01/16/22 8:50:00 EDT, KETOP20/BAC2/CYCL2/GABA6 IN LIPODERM, eRx Product Type: Compound, See Instructions, Disp# 240 g, Refills: 2, APPLY 2-4 PUMPS (1-2 GRAMS) TOPICALLY TO AFFECTED AREA 3-4 TIMES DAILY, [facility] Start Date: 01/16/22 Status: Ordered LaMICtal Start: 02/28/18 15:58:00 EST, 50 mg =, PO, bid Start Date: 02/28/18 Status: Ordered Lipitor 40 mg oral tablet Start: 09/04/22 15:13:00 EDT, 1 tab, PO, Daily, Disp# 90 tab, Refills: 3, Pharmacy: [facility] Start Date: 09/04/22 Status: Ordered One Touch Delica (33G) Lancets Start: 12/26/14 9:54:00, See Instructions, Disp# 100 unit, Refills: 3, test twice d Start Date: 12/26/14 Status: Ordered One Touch Ultra Test Strips 100 ct Start: 12/26/14 9:52:00, See Instructions, Disp# 4 box, Refills: 3, test twice daily Start Date: 12/26/14 Status: Ordered Potassium Chloride (Dle-Qchc-Tew 10) 10 mEq oral tablet, extended release Start: 09/01/22 20:28:00 EDT, See Instructions, Disp# 180 tab, Refills: 3, TAKE 1 TABLET BY MOUTH TWICE DAILY, Pharmacy: [facility] Start Date: 09/01/22 Status: Ordered Vaniqa 13.9% topical cream Start: 07/24/21 13:06:00 EDT, 1 appl, topical, bid, Disp# 30 g, Refills: 2, given to patient Start Date: 07/24/21 Status: Ordered Vitamin D3 2000 intl units oral tablet Start: 11/17/17 13:53:00 EDT, 1 tab, PO, Daily Start Date: 11/17/17 Status: Ordered Mental Status 07/15/23 Barriers to Learning one year Vision imp airment, Other: uses a cane PRN Mandatory Health Literacy Documentation Yes Health Literacy Communication Barriers N ever Primary Language Brazilian Problem List Condition Confirmation Course Effective Dates Status H ealth Status Informant Atherosclerosis of abdominal aorta 1 Confirmed Active Acquired ptosis of eyelid Confirmed Active Angioedema Confirmed Active Ankle pain 2 Confirmed Active Ankle pain 3 Confirmed Active Anxiety Confirmed Active Arthritis Confirmed Active Basal cell carcinoma Confirmed Active Benign meningioma Confirmed Active Borderline diabetes mellitus Confirmed Active Burning mouth syndrome Confirmed Active Callus Confirmed Active Caregiver stress Confirmed Active Caregiver stress Confirmed Active Chest pain Confirmed Active Chronic kidney disease, stage 3b Confirmed Active Constipation Confirmed Active Skin tag of female perineum Confirmed Active GRIMES (dyspnea on exertion) Confirmed Active Elevated liver enzymes Confirmed Active Fatigue Confirmed Active Generalized seizure Confirmed Active Hx of uterine prolapse Confirmed Active History of left knee replacement Confirmed Active Hypertensive disorder Confirmed Active Impaired glucose tolerance Confirmed Active Lichen simplex chronicus Confirmed Active Lipoma Confirmed Active Acute lumbar radiculopathy Confirmed Active Mental confusion Confirmed Active Hyperlipidemia Confirmed Active Nummular eczema Confirmed Active Tinea unguium Confirmed Active Knee osteoarthritis Confirmed Active Borderline osteopenia Confirmed Active Osteoporosis Confirmed Active Osteoporosis Confirmed Active Chronic paronychia of toe Confirmed Active Medicare annual wellness visit, subsequent Confirmed Active Medicare annual wellness visit, subsequent Confirmed Active Peripheral vascular disease, unspecified Confirmed Active Preoperative state Confirmed Active Knee DJD 4 Confirmed Active Prolapse of female pelvic organs Confirmed Active 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 Right arm numbness Confirmed Active Right facial numbness Confirmed Active Rosacea Confirmed Active Seborrheic dermatitis of scalp Confirmed Active Seizure disorder Confirmed Active Seizure disorder Confirmed Active Sacral insufficiency fracture Confirmed Active Syncope Confirmed Active Syncope Confirmed Active Transient cerebral ischemia Confirmed Active 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 Ventricular premature beats Confirmed Active Weight disorder Confirmed Active Word finding difficulty Confirmed Active 1See outside rad/study 05/10/18 CT Scan: Mild to moderate atherosclerotic calcification in abdominalaorta 2right 3left 4left Diagnosis Diagnosis Type Effective Dates Health Status Clinical Service Informant Body mass index [BMI] 33.0-33.9, adult Discharge Diagnosis 07/15/23 Non-Specified Elevated serum creatinine Discharge Diagnosis 07/15/23 Non-Specified Syncope Discharge Diagnosis 07/15/23 Procedures Procedure Date Related Diagnosis Body Site Status Chest X-ray 1 02/13/[address] of head 2 11/25/20 Completed Shave biopsy and cauterizati on of skin 3 07/31/20 Completed Mammogram 4 01/31/20 Completed Mammogram 5 01/25/19 Completed Enterocele 11/02/18 Completed Removal of cul-de-sac foreign body 6 11/02/18 Completed uterine prolapse with repair 07/2018 Completed Loop Recorder 2018 Completed Cataract extraction- bi-lat 2016 Completed Total knee replacement- left 2013 Completed Colonoscopy 7 2007 Completed Knee replacement- left 8 2001 Completed Ankle fracture- surgery 9, 10 2000 Completed Anterior and posterior repai r bladder & poss. rectal 1970 Completed Partial Hysterectomy 1970 Comp leted Tubal ligation 1970 Completed Tonsillectomy 1940 Completed 1No acute cardiopulmonary disease. 21. No acute intracranial findings. 2. No change in a 1cm left parafalcine meningioma since prior MRI. 3ED&C 4No mammogrphic evidence of malignancy. 1 year screening is recommended. 5No mammographic evidence of malignancy. 1 year screening mammogram is recommended. 6Removal of cul-de-sac foreign body 7before turning 75yo & was normal 8left 9right 10done in 2001 Results Laboratory List Name Date Basic Metabolic Panel (BASIC METAB PANEL ) 07/15/23 Most recent to oldest [Reference Range]: 1 eGFR CKD-EPI [>60 mL/min/1.73 m2] 40 mL/ min/1.73 m2 *LOW* (07/15/23 2:42 PM) Estimated CrCl 26.53 mL/min (07/15/23 7:21 PM) Anion Gap [5-14 mmol/L] 10 mmol/L (07/15/23 2:42 PM) BUN [6-23 mg/dL] 29 mg/dL *HI* (07/15/23 2:42 PM) Ca [8.4-10.2 mg/dL] 10.1 mg/dL (07/15/23 2:42 PM) Cl- [98-107 mmol/L] 102 mmol/L (07/15/23 2:42 PM) HCO3 [22-29 mmol/L] 26 mmol/L (07/15/23 2:42 PM) Cret [0.60-1.00 mg/dL] 1.29 mg/dL *HI* (07/15/23 2:42 PM) Glu [74-109 mg/dL] 96 mg/dL 1 (07/15/23 2:42 PM) K [3.5-5.1 mmol/L] 4.2 mmol/L (07/15/23 2:42 PM) Na [136-145 mmol/L] 138 mmol/L (07/15/23 2:42 PM) 1Result Comment: ADA recommendation for FASTING Serum/Plasma Glucose: Normal: 70-100 mg/dL Prediabetes: 100-125 mg/dL Diabetes: 126 mg/dL or higher Vital Signs Most recent to oldest [Reference Range]: 1 Height 150 cm (07/15/23 1:13 PM) Patient Weight 74.4 kg (07/15/23 1:13 PM) Body Mass Index 33.07 kg/m2 (07/15/23 1:13 PM) Temperature [36.5-37.9 DegC] 36.7 DegC (07/15/23 1:13 PM) Blood Pressure 138/76mmHg (07/15/23 1:13 PM) BP Location # 1 Left Arm (07/15/23 1:13 PM) Social History Social History Type Response Smoking Status Never smoked cigaret nicko Sex Female Patient Care team information Care Team Personnel Name: MD Elaine Amy L Position: Physician - Family Med Member Role: Primary Care Provider Address: Address: [address] [place] [address] Name: NICK Angeles, Zenia Baldwin Position: Physician - Podiatry Member Role: Lifetime Relationship Address: Address: [address] Name: MD Nikky, Gamal Baldwin Position: Physician - Derm Member Role: Lifetime Relationship Address: Address: [address] [place] [address] [place] Name: Steve Jones Paula Position: Pharmacist Member Role: Pharmacy - Lifetime Address: Address: [address] [address] [place] Care Team Related Persons Name: OZZY RODRÍGUEZ Name: KRISTIE SORTO Address: [address] [phone]
[2023-07-30 06:15] LABS: Albumin Globulin Ratio 1.2 (0.9-2); Albumin Level 3.6 gm/dl (3.4-5.0); BUN Creatinine Ratio 22.1 (10-20); Bilirubin,Total 0.6 mg/dl (0.2-1.0); Calcium 9.2 mg/dl (8.6-10.3); Creatinine Clr Calc Pharmacy 27.1 ml/min; Est GFR (African American) 38.8 ml/min; Est GFR (Non-African American) 33.5 ml/min; Globulin 2.9 gm/dl (2.5-4.0); Magnesium 1.9 mg/dl (1.7-2.4); Potassium 3.5 mmol/L (3.5-5.1); Total Protein 6.5 gm/dl (6.0-8.3)
[2023-07-30 06:35] LABS: Prothrombin Time 10.4 Seconds (9.0-12.0)
[2023-07-30 07:26] LABS: Basophils # (auto) 0.03 K/uL (0.00-0.20); Basophils % (auto) 0.4 %; Eosinophils # (auto) 0.35 K/uL (0.00-0.50); Eosinophils % (auto) 4.6 %; Hematocrit (blood only) 36.2 % (37.0-47.0); Hemoglobin 12.3 g/dl (12.0-16.0); Immature Granulocytes # (auto) 0.01 K/uL (0.01-0.20); Immature Granulocytes % (auto) 0.1 %; Lymphocytes # (auto) 2.19 K/uL (1.20-3.40); Lymphocytes % (auto) 28.7 %; Mean Corpuscular Hemoglobin 29.6 pg (25.0-34.0); Mean Corpuscular Volume 87.2 fL (80.0-100.0); Mean Platelet Volume 10.4 fL (9.4-12.4); Monocytes # (auto) 0.62 K/uL (0.11-0.59); Monocytes % (auto) 8.1 %; Neutrophils # (auto) 4.43 K/uL (1.40-6.50); Neutrophils % (auto) 58.1 %; Platelet Count 250 K/uL (130-400); RDW Coefficient of Variation 13.6 % (11.5-14.5); RDW Standard Deviation 42.9 fL (36.4-46.3); Red Blood Count 4.15 M/uL (4.20-5.40); White Blood Count 7.63 K/ul (4.8-10.8)
--- NOTE | 2023-07-30 12:13 | Discharge Summary ---
Date of Service July 30, 2023 Admission HPI Per Admitting Provider Destiney is a 88 year old female with a PMH significant for seizure disorder (on Lamictal), HTN, dyslipidemia, DMII, meningioma, and previous syncopal episodes who presented to the [facility] ED on 07/28/23 after experiencing 2 syncopal episodes this am. On arrival to the ED she was noted to be hypertensive at 238/94 but was otherwise stable. Labs were significant for a sodium of 134. Chest xray was negative for acute findings. CT of the head/brain wo con was read as "1. There is no hemorrhage, mass effect, or evidence of acute territorial ischemia by CT criteria. 2. A focus of right cerebellar encephalomalacia is new from 05/20/2023. This likely represents a late subacute/evolving infarct. Correlate clinically. 3. Additional findings as above.". Prior to admission the patient was given 10 mg IV hydralazine. At the time of the exam the patient was sitting in bed in no acute distress with a friend bedside. History was obtained from both as the patient gave permission for her friend to be present. The patient's is currently on home hospice. The patient states she was walking to their bedroom when she had a sudden loss of consciousness. The episode was witnessed by the patient's 's Hospice Nurse who reported that the patient was only unconscious for a few seconds before waking. The patient denies prodromal symptoms such as chest pain, palpitations, lightheadedness/dizziness prior to the episode occurring. The hospice nurse got the patient into a chair and was attempting to take her BP when the patient had another sudden loss of consciousness. She did hit her head and has a small upper lip laceration that is not currently bleeding. She also is experiencing right knee pain since the fall. When asked, the patient has also been experiencing intermittent blurry vision of the left eye and mild headaches over the past week. She denies current headache, current vision changes, new paresthesias/unilateral weakness, chest pain,SOB, cough, abd pain, nausea, vomiting, diarrhea, dysuria, hematuria, melena, LE swelling. She did have her am medications including her HCTZ and am Lamictal prior to her syncopal episodes. She is a DNR/DNI and her and daughter are her primary decisions makers if she cannot make decisions for herself. Please refer to Dr. Baron's attestation for any changes to the treatments plans Principal Diagnosis Acute right cerebellar CVA, syncope, right knee pain Discharge Exam General-alert and oriented x3, no fever, no chills HEENT-head atraumatic and normocephalic, pupils equal and reactive to light, extraocular muscles intact Neck-no lymphadenopathy or thyromegaly, trachea midline Chest-clear to auscultation. No rales, wheezing or rhonchi Cardiac-regular rate and rhythm, normal S1 and S2 Abdomen-normal bowel sounds, no hepatosplenomegaly Extremities-no cyanosis, clubbing, or edema Neuro-cranial nerves II through XII intact, motor and sensory function within normal limits, strength symmetrical, no focal deficits Psych-normal affect, normal mood Discharge Data Allergies Allergy/AdvReac Type Severity Reaction Status Date / Time alendronate sodium Allergy Severe tongue Verified 07/28/23 16:49 swelling lisinopril Allergy Unknown Verified 07/28/23 16:49 Consultations 07/28/23 16:19 ED Decision to Admit Stat 07/28/23 18:17 Consult Neurology Routine Ordered Studies 07/28/23 14:16 CT head/brain wo con Stat 07/28/23 17:42 CTA head w con [CT angio head w con] Stat CTA neck with con [CT angio neck with con] Stat 07/28/23 18:24 MRI Brain [MR brain seizure wo/w con] Stat Hospital Course (1) Cerebellar stroke, acute: Right cerebellar ischemic CVA seen on MRI scan. OT and PT evaluations completed. Neurology consultation appreciated. Cardiac echo reveals preserved ejection fraction with mild LVH and no evidence of intracardiac shunt. F ortunately she has no motor deficits. (2) Syncope: Apparently occurred twice prior to admission. No recurrence while hospitalized. Continue telemetry while hospitalized. Monitor blood pressure (3) Hypertension: Permissive hypertension while hospitalized. (4) Seizure disorder: Stable. Continue Lamictal (5) Type 2 diabetes mellitus: Diabetic diet. Sliding scale coverage. (6) Right knee pain: X-ray reveals degenerative joint disease without evidence of fracture. S ymptomatic treatment. Plan Home today, July 29, with home health services. Continue aspirin 81 mg daily along with other medications. Total Time Total Time Spent Total Time Spent (In Minutes): 45 minutes Discharge Plan Discharge Items Patient Disposition: Home - Home Health Services Reason For Visit: SYNCOPE, HTN, RIGHT CEREBELLAR INFARCT Discharge Diagnosis: Acute ischemic right cerebellar CVA, syncope Activity: Resume your previous activity Non-emergency contact: Primary Care Provider Call non-emergency contact if: your symptoms worsen Follow-up/Referrals: Darby Elaine MD [Primary Care Provider] - Diet: Carb Consistent or DM2 and Heart Healthy Addtl Attending Provider Instructions: Take aspirin 81 mg daily. All other medications remain the same Pending Studies at Discharge: No Stand-Alone Forms: My [facility]bi Video, Smoking Cessation, Medications to Prevent Stroke Medications and DC Order Prescriptions: New aspirin 81 mg Tablet,Delayed Release (Dr/Ec) 81 mg PO DAILY Qty: 0 0RF Continued cholecalciferol (vitamin D3) 25 mcg (1,000 unit) capsule 50 mcg PO DAILY alprazolam [Xanax] 0.25 mg tablet 0.25 mg PO TID PRN (Reason: anxiety) 90 Days Qty: 270 0RF lamotrigine 50 mg tablet extended release 24hr 50 mg PO BID Qty: 180 3RF potassium chloride 10 mEq tablet extended release 10 meq PO BID (DME) OneTouch Verio test strips Strip See Rx Instructions .Route Rx Instructions: Test blood sugar twice daily atorvastatin 40 mg tablet 40 mg PO DAILY Qty: 30 2RF hydrochlorothiazide 25 mg tablet 25 mg PO DAILY terazosin 2 mg capsule 2 mg PO HS (DME) lancets [OneTouch Delica Lancets] 33 gauge misc See Rx Instructions .ROUTE .MEDSUPPLY Qty: 100 Rx Instructions: testing 2 X daily escitalopram oxalate 10 mg tablet 5 mg PO DAILY carvedilol 6.25 mg tablet 6.25 mg PO BID amoxicillin 500 mg capsule 2,000 mg PO ONCE PRN (Reason: 1 hr prior to dental appt) melatonin 5 mg tablet,disintegrating 5 mg PO HS PRN (Reason: Sleep) Discharge Orders: Discharge Order (Routine); Ordered 07/30/23 Ordered By: Remi Mcdaniel/Other Patient Handouts: Managing Type 2 Diabetes Admission Data Admit Date/Time: 07/28/23 16:47 Attending Provider: Remi Davila Admit Provider: Murali Baron Primary Care Provider: Darby Elaine Other Providers: Murali Baron; Dedrick Alex Coding Level of Care Code 45465 INP/OBS DISCH >30 MIN Diagnoses Cerebellar stroke, acute I63.9 Syncope R55 Hypertension I10 Seizure disorder G40.909 Type 2 diabetes mellitus E11.9 Right knee pain M25.561
== END 2023-07-30 14:16 | disposition home health service (06) | DRG 66 ==
LOC: ED 14:08 → SUATTDRO 16:47 → 2E 16:47
DX: Z66 Do not resuscitate; M25.561 Pain in right knee; N18.31 Chronic kidney disease, stage 3a; G40.909 Epilepsy, unspecified, not intractable, without status epilepticus; Z96.652 Presence of left artificial knee joint; I63.541 Cerebral infarction due to unspecified occlusion or stenosis of right cerebellar artery; I12.9 Hypertensive chronic kidney disease with stage 1 through stage 4 chronic kidney disease, or unspecified chronic kidney disease; Z86.011 Personal history of benign neoplasm of the brain; I16.0 Hypertensive urgency; Z88.8 Allergy status to other drugs, medicaments and biological substances; Z79.899 Other long term (current) drug therapy; E11.22 Type 2 diabetes mellitus with diabetic chronic kidney disease; Z79.82 Long term (current) use of aspirin